=== PATIENT | female | born 1970 | race Caucasian/White ===

== ENCOUNTER 2018-05-17 16:33 | Inpatient (IN) | payer MEDICAID ==
[2018-05-17] MEDS ORDERED: Lactated Ringer 1,000 ML IV ONE ×2 (16:49→21:30)
[2018-05-17 17:10] LABS: URINE SOURCE CLEAN C
[2018-05-17 17:12] LABS: % BASOPHILS 0.2 % (0.0-2.0); % EOSINOPHILS 0.9 % (0.0-5.0); % MONOCYTES 4.3 % (2.0-10.0); % NEUTROPHILS 78.6 % (40.0-80.0); EOSINOPHILE ABSOLUTE 0.2 Th/cmm (0.1-0.4); HEMATOCRIT 41.3 % (41.0-60); HEMOGLOBIN 13.6 gm/dL (12-16); LYMPHOCYTE ABSOLUTE 2.8 Th/cmm (1.5-3.0); MEAN CELL VOLUME 84.2 fl (81-100); MEAN CORPUSCULAR HEMOGLOBIN 27.7 pg (27.0-31.0); MEAN CORPUSCULAR HGB CONC 32.9 pg (28.0-36.0); MEAN PLATELET VOLUME 8.4 fl; MONOCYTE ABSOLUTE 0.8 Th/cmm (0.3-1.0); PLATELET COUNT 365 Th/cmm (150-400); RED CELL DISTRIBUTION WIDTH 11.7 % (11.5-20.0)
[2018-05-17 17:14] LABS: URINE BILIRUBIN NEGATIVE (NEGATIVE); URINE BLOOD NEGATIVE (NEGATIVE); URINE GLUCOSE (UA) NEGATIVE (NEGATIVE); URINE KETONE NEGATIVE (NEGATIVE); URINE LEUKOCYTE ESTERASE NEGATIVE (NEGATIVE); URINE MICROSCOPIC INDICATED? YES; URINE NITRATE NEGATIVE (NEGATIVE); URINE PROTEIN TRACE mg/dL (NEGATIVE)
[2018-05-17 17:20] LABS: WHITE BLOOD COUNT 17.8 Th/cmm (4.8-10.8)
[2018-05-17 17:25] LABS: URINE CLARITY CLEAR (CLEAR); URINE COLOR STRAW
[2018-05-17 17:26] LABS: ALB/GLOB RATIO 1.4 (1.0-1.8); ALBUMIN 4.3 gm/dL (3.7-5.3); ALKALINE PHOSPHATASE 58 U/L (34-104); AMYLASE SERUM 31 U/L (29-103); ANION GAP 14.3 (7.0-16.0); BILIRUBIN,TOTAL 0.8 mg/dL (0.3-1.0); BUN - UREA NITROGEN 11 mg/dL (7-25); CALCIUM SERUM 9.4 mg/dL (8.6-10.3); CARBON DIOXIDE 25.4 mEq/L (21.0-31.0); CHLORIDE 102 mEq/L (98-107); CREATININE - SERUM 0.4 mg/dL (0.6-1.2); GFR AFRICAN-AMERICAN > 60.0 ml/min (>90); GFR NON AFRICAN-AMERICAN > 60.0 ml/min; GLUCOSE 116 mg/dL (70-105); LIPASE 7 U/L (11-82); PHOSPHOROUS 3.6 mg/dL (2.5-5.0); POTASSIUM SERUM 3.7 mEq/L (3.5-5.1); SGOT 16 U/L (13-39); SGPT/ALT 13 U/L (7-52); SODIUM SERUM 138 mEq/L (136-145); TOTAL PROTEIN,SERUM 7.3 gm/dL (6.0-8.3)
[2018-05-17 17:26] LABS: URINE EPITHELIAL CELLS RARE /lpf (FEW); URINE RBC NONE SEEN /hpf (0-5); URINE WBC NONE SEEN /hpf (0-5)
[2018-05-17 17:27] LABS: URINE BACTERIA NONE SEEN /hpf (NONE SEEN)
[2018-05-17 17:45] LABS: AMPHETAMINE URINE NEGATIVE (NEGATIVE); BARBITURATES URINE NEGATIVE (NEGATIVE); BENZODIAZEPINES QUAL URINE NEGATIVE (NEGATIVE); CANNABINOID THC NEGATIVE (NEGATIVE); COCAINE METABOLITE QUAL URINE NEGATIVE (NEGATIVE); METHADONE URINE NEGATIVE (NEGATIVE); METHAMPHETAMINES QUAL URINE NEGATIVE (NEGATIVE); OPIATES (MORPHINE) QUAL. URINE NEGATIVE (NEGATIVE); PHENCYCLIDINE (PCP) URINE NEGATIVE (NEGATIVE); TRICYCLICS (TCA) QUAL. URINE NEGATIVE (NEGATIVE)
[2018-05-17] MEDS ORDERED: Piperacillin Sodium/Tazobact 3.375 gm Vial IV ONE (17:56)
[2018-05-17] MEDS ORDERED: Morphine Sulfate 2 mg/mL 1mL Syr IV STA ×2 (18:08→19:38)
[2018-05-17] MEDS ORDERED: Morphine Sulfate 2 mg/mL 1mL Syr ONE ×2 (18:09→19:42)
--- NOTE | 2018-05-17 19:18 | ED Physician Chart ---
ED Chief Complaint/HPI - Patient Information Date Seen:: 05/17/18 Time Seen:: 16:52 Chief Complaint:: RLQ & RUQ pain, N & anorexia History of Present Illness:: RLQ & RUQ pain, N & anorexia Allergies:: Allergies Allergy/AdvReac Type Severity Reaction Status Date / Time aspirin Allergy Verified 11/20/15 22:04 Vitals:: Vital Signs - 8 hr 05/17/18 05/17/18 16:52 18:07 Temp 98.5 F 99.4 F HR 81 76 RR 22 12 BP 139/83 136/71 O2 Sat % 100 97 Historian:: Patient, Family Member Review:: Nurse's Note Reviewed ED Review of Systems - Review of Systems General/Constitutional: No fever, No chills, No weakness, No diaphoresis, No edema, Loss of appetite Skin: No skin lesions, No rash, No bruising Head: No headache, No light-headedness Eyes: No loss of vision, No pain, No diplopia ENT: No earache, No nasal drainage, No sore throat, No tinnitus Neck: No neck pain, No swelling, No thyromegaly, No stiffness, No mass noted Cardio Vascular: No chest pain, No palpitations, No PND, No orthopnea, No edema Pulmonary: No SOB, No cough, No sputum, No wheezing GI: Nausea, No vomiting, No diarrhea, Pain, No melena, No hematochezia, No constipation, No hematemesis G/U: No dysuria, No frequency, No hematuria Musculoskeletal: No bone or joint pain, No back pain, No muscle pain Endocrine: No polyuria, No polydipsia Psychiatric: No prior psych history, No depression, No anxiety, No suicidal ideation Hematopoietic: No bruising, No lymphadenopathy Allergic/Immuno: No urticaria, No angioedema Neurological: No syncope, No focal symptoms, No weakness, No paresthesia, No headache, No seizure, No dizziness, No confusion, No vertigo ED Past Medical History - Past Medical History Obtainable: Yes Past Medical History: Other (gallstones) Surgical History: other (tubal ligation) Family Medical History - Family Member Mother History Unknown: Yes Ethnicity: ED Physical Exam - Physical Examination General/Constitutional: Awake, Well-developed, well-nourished, Alert, No distress, GCS 15, Non-toxic appearing, Ambulatory Head: Atraumatic Eyes: Lids, conjuctiva normal, PERRL, EOMI Skin: Nl inspection, No rash, No skin lesions, No ecchymosis, Well hydrated, No lymphadenopathy ENMT: External ears, nose nl Neck: Nontender, No nuchal rigidity, No stridor Respiratory: Nl effort/Exclusion, Clear to Auscultation, No Wheeze/Rhonchi/Rales Cardio Vascular: RRR, No murmur, gallop, rubs, NL S1 S2 GI: Nondistended Other GI comments:: decreased bowel sounds. POSITIVE PERITONEAL SIGNS WITH COUGHING. PAIN IS IN THE RIGHT LOWER QUADRANT. Pain in the RUQ as well. MOST PAIN IS IN THE RIGHT LOWER QUADRANT. : No CVA tenderness Extremities: No tenderness or effusion, Full ROM, normal strength in all extremities, No edema, Normal digits & nails Neuro/Psych: Alert/oriented, Normal sensory exam, Normal motor strength, Judgement/insight normal, Mood normal, Normal gait, No focal deficits Misc: Normal back, No paraspinal tenderness ED Labs/Radiology/EKG Results - Lab Results Results: Laboratory Tests 05/17/18 05/17/18 05/17/18 17:00 17:00 17:00 WBC 17.8 H RBC 4.90 Hgb 13.6 Hct 41.3 MCV 84.2 MCH 27.7 MCHC Differential 32.9 RDW 11.7 Plt Count 365 MPV 8.4 Neutrophils % 78.6 Lymphocytes % 16.0 L Monocytes % 4.3 Eosinophils % 0.9 Basophils % 0.2 Sodium 138 Potassium 3.7 Chloride 102 Carbon Dioxide 25.4 Anion Gap 14.3 BUN 11 Creatinine 0.4 L Est GFR ( Amer) > 60.0 Est GFR (Non-Af Amer) > 60.0 BUN/Creatinine Ratio 27.5 Glucose 116 H Whole Bld Lactic Acid 0.96 Calcium 9.4 Phosphorus 3.6 Magnesium 2.0 Total Bilirubin 0.8 AST 16 ALT 13 Alkaline Phosphatase 58 Total Protein 7.3 Albumin 4.3 Globulin 3.0 Albumin/Globulin Ratio 1.4 Amylase 31 Lipase 7 L Urine Source Urine Color Urine Clarity Urine pH Ur Specific [place] Urine Protein Urine Glucose (UA) Urine Ketones Urine Blood Urine Nitrate Urine Bilirubin Urine Urobilinogen Ur Leukocyte Esterase Urine RBC Urine WBC Ur Epithelial Cells Urine Bacteria Urine Opiates Screen Urine Methadone Screen Ur Barbiturates Screen Ur Tricyclics Screen Ur Phencyclidine Scrn Amphetamines Screen U Methamphetamines Scrn U Benzodiazepines Scrn U Cocaine Metab Screen U Cannabinoids Screen 05/17/18 05/17/18 17:02 17:02 WBC RBC Hgb Hct MCV MCH MCHC Differential RDW Plt Count MPV Neutrophils % Lymphocytes % Monocytes % Eosinophils % Basophils % Sodium Potassium Chloride Carbon Dioxide Anion Gap BUN Creatinine Est GFR ( Amer) Est GFR (Non-Af Amer) BUN/Creatinine Ratio Glucose Whole Bld Lactic Acid Calcium Phosphorus Magnesium Total Bilirubin AST ALT Alkaline Phosphatase Total Protein Albumin Globulin Albumin/Globulin Ratio Amylase Lipase Urine Source CLEAN C Urine Color STRAW Urine Clarity CLEAR Urine pH 7.0 Ur Specific [place] 1.020 Urine Protein TRACE Urine Glucose (UA) NEGATIVE Urine Ketones NEGATIVE Urine Blood NEGATIVE Urine Nitrate NEGATIVE Urine Bilirubin NEGATIVE Urine Urobilinogen 1.0 Ur Leukocyte Esterase NEGATIVE Urine RBC NONE SEEN Urine WBC NONE SEEN Ur Epithelial Cells RARE Urine Bacteria NONE SEEN Urine Opiates Screen NEGATIVE Urine Methadone Screen NEGATIVE Ur Barbiturates Screen NEGATIVE Ur Tricyclics Screen NEGATIVE Ur Phencyclidine Scrn NEGATIVE Amphetamines Screen NEGATIVE U Methamphetamines Scrn NEGATIVE U Benzodiazepines Scrn NEGATIVE U Cocaine Metab Screen NEGATIVE U Cannabinoids Screen NEGATIVE ED Assessment - Assessment General Assessment: CT scan of abdomen/pelvis: abnormal changes including wall thickening cecum, ascending colon. Consistent with inflammatory changes. Appendix appears enlarged. Appendicitis suspect. ? cholelithiasis. phone call made to Dr. Peterson who informed me that he doesn't do general surgery. He suggested that I call the 2 other surgeons who take call here. I called Dr. Robertson who was extremely rude and abrasive. When I told him that I didn't think that the patient could wait until the morning to have her appendix removed, DR. ROBERTSON TOLD ME THAT HE DIDN'T CARE ABOUT WHAT MY OPINION WAS. HE SAID THAT HE WOULDN'T COME IN FROM HOME TO PERFORM THE SURGERY TONIGHT. I THANKED THIS SURGEON WHO WAS JUST RUDE AND ABRASIVE TO ME FOR ANSWERING THE PHONE CALL THAT I MADE TO HIM ON A NIGHT WHEN HE WAS NOT FOUNDATION ENGINEER. I then called Dr. Purcell (who Dr. Roberson just answered Brett's phone call and told us to call). Dr. Purcell was very gracious and agreed to come in from home to evaluate this patient for possible surgery tonight. Even though Dr. Purcell is not computer applications engineer, he was nice enough to come in from home to see this patient. Dr. Roberson will admit as the primary. ED Septic Shock - . Is Septic Shock (SBP<90, OR Lactate>4 mmol\L) present?: No - <6hrs of presentation: Vital Signs: Vital Signs - 8 hr 05/17/18 05/17/18 16:52 18:07 Temp 98.5 F 99.4 F HR 81 76 RR 22 12 BP 139/83 136/71 O2 Sat % 100 97 ED Reassessment (Disposition) - Reassessment Reassessment Condition:: Unchanged - Diagnosis Diagnosis:: Acute appendicitis with wall thickening of the cecum and ascending colon. Cholelithiasis (positive from history as well). Leukocytosis. - Patient Disposition Discharge/Transfer:: Acute Care w/in this hosp Admitted to:: Med/Surg Condition at Disposition:: Stable, Unchanged
[2018-05-17] MEDS ORDERED: D5LR 1,000 ML IV ONE ×2 (19:32→19:33)
[2018-05-17] MEDS ORDERED: Morphine Sulfate 2 mg/mL 1mL Syr IVP PRN (19:36)
[2018-05-17 20:12] LABS: INR 0.88 (0.5-1.4); PROTHROMBIN TIME (TEST) 9.3 SECONDS (9.5-11.5)
[2018-05-17] MEDS ORDERED: cefTRIAXone 1 GM in Sodium Chloride 0.9% 50 ML IV SCH (21:00)
[2018-05-17 21:03] VITALS: BP 145/69
[2018-05-17] MEDS ORDERED: Bupivacaine 0.5% W/Ep 10 mL Vial INJ ONE (21:30)
[2018-05-17] MEDS ORDERED: Sodium Chloride 0.9% 1,000 ML IV ONE (21:30)
[2018-05-17] MEDS ORDERED: fentaNYL Citrate 100 mcg/2mL Vial ONE (22:00)
--- NOTE | 2018-05-17 22:08 | Consultation ---
Consult Note - Consult Note Consult Note: PHYSICIAN Consultation Note: Date of Admission: 05/17/18 Purpose of Consultation: Chief Complaint: History of Present Illness: Patient LUBNA ALATORRE was admitted to location Medical/Surgical Unit I with ACUTE APPENDICITIS. Past Medical History: Allergies Allergy/AdvReac Type Severity Reaction Status Date / Time aspirin Allergy Verified 11/20/15 22:04 Vital Signs Temp 99.3 F 05/17/18 20:01 Pulse 74 05/17/18 20:01 Resp 18 05/17/18 20:01 BP 145/69 05/17/18 21:02 Pulse Ox 98 05/17/18 20:01 Intake & Output 05/17/18 05/17/18 05/18/18 06:59 18:59 06:59 Intake Total 1850 Balance 1850 Weight (lbs) 153 lb 153 lb Intake: Intake, IV Amount 1850 Other: # Voids 1 Weight Source Patient stated Patient stated Laboratory Results - last 24 hr 05/17/18 05/17/18 05/17/18 17:00 17:00 17:00 WBC 17.8 H RBC 4.90 Hgb 13.6 Hct 41.3 MCV 84.2 MCH 27.7 MCHC Differential 32.9 RDW 11.7 Plt Count 365 MPV 8.4 Neutrophils % 78.6 Lymphocytes % 16.0 L Monocytes % 4.3 Eosinophils % 0.9 Basophils % 0.2 PT INR PTT (Actin FS) Sodium 138 Potassium 3.7 Chloride 102 Carbon Dioxide 25.4 Anion Gap 14.3 BUN 11 Creatinine 0.4 L Est GFR ( Amer) > 60.0 Est GFR (Non-Af Amer) > 60.0 BUN/Creatinine Ratio 27.5 Glucose 116 H POC Glucose Whole Bld Lactic Acid 0.96 Calcium 9.4 Phosphorus 3.6 Magnesium 2.0 Total Bilirubin 0.8 AST 16 ALT 13 Alkaline Phosphatase 58 Total Protein 7.3 Albumin 4.3 Globulin 3.0 Albumin/Globulin Ratio 1.4 Amylase 31 Lipase 7 L Urine Source Urine Color Urine Clarity Urine pH Ur Specific [place] Urine Protein Urine Glucose (UA) Urine Ketones Urine Blood Urine Nitrate Urine Bilirubin Urine Urobilinogen Ur Leukocyte Esterase Urine RBC Urine WBC Ur Epithelial Cells Urine Bacteria Urine Opiates Screen Urine Methadone Screen Ur Barbiturates Screen Ur Tricyclics Screen Ur Phencyclidine Scrn Amphetamines Screen U Methamphetamines Scrn U Benzodiazepines Scrn U Cocaine Metab Screen U Cannabinoids Screen 05/17/18 05/17/18 05/17/18 17:00 17:02 17:02 WBC RBC Hgb Hct MCV MCH MCHC Differential RDW Plt Count MPV Neutrophils % Lymphocytes % Monocytes % Eosinophils % Basophils % PT 9.3 L INR 0.88 PTT (Actin FS) 24.7 L Sodium Potassium Chloride Carbon Dioxide Anion Gap BUN Creatinine Est GFR ( Amer) Est GFR (Non-Af Amer) BUN/Creatinine Ratio Glucose POC Glucose Whole Bld Lactic Acid Calcium Phosphorus Magnesium Total Bilirubin AST ALT Alkaline Phosphatase Total Protein Albumin Globulin Albumin/Globulin Ratio Amylase Lipase Urine Source CLEAN C Urine Color STRAW Urine Clarity CLEAR Urine pH 7.0 Ur Specific [place] 1.020 Urine Protein TRACE Urine Glucose (UA) NEGATIVE Urine Ketones NEGATIVE Urine Blood NEGATIVE Urine Nitrate NEGATIVE Urine Bilirubin NEGATIVE Urine Urobilinogen 1.0 Ur Leukocyte Esterase NEGATIVE Urine RBC NONE SEEN Urine WBC NONE SEEN Ur Epithelial Cells RARE Urine Bacteria NONE SEEN Urine Opiates Screen NEGATIVE Urine Methadone Screen NEGATIVE Ur Barbiturates Screen NEGATIVE Ur Tricyclics Screen NEGATIVE Ur Phencyclidine Scrn NEGATIVE Amphetamines Screen NEGATIVE U Methamphetamines Scrn NEGATIVE U Benzodiazepines Scrn NEGATIVE U Cocaine Metab Screen NEGATIVE U Cannabinoids Screen NEGATIVE 05/17/18 21:41 WBC RBC Hgb Hct MCV MCH MCHC Differential RDW Plt Count MPV Neutrophils % Lymphocytes % Monocytes % Eosinophils % Basophils % PT INR PTT (Actin FS) Sodium Potassium Chloride Carbon Dioxide Anion Gap BUN Creatinine Est GFR ( Amer) Est GFR (Non-Af Amer) BUN/Creatinine Ratio Glucose POC Glucose 170 H Whole Bld Lactic Acid Calcium Phosphorus Magnesium Total Bilirubin AST ALT Alkaline Phosphatase Total Protein Albumin Globulin Albumin/Globulin Ratio Amylase Lipase Urine Source Urine Color Urine Clarity Urine pH Ur Specific [place] Urine Protein Urine Glucose (UA) Urine Ketones Urine Blood Urine Nitrate Urine Bilirubin Urine Urobilinogen Ur Leukocyte Esterase Urine RBC Urine WBC Ur Epithelial Cells Urine Bacteria Urine Opiates Screen Urine Methadone Screen Ur Barbiturates Screen Ur Tricyclics Screen Ur Phencyclidine Scrn Amphetamines Screen U Methamphetamines Scrn U Benzodiazepines Scrn U Cocaine Metab Screen U Cannabinoids Screen Home Medication Medication Instructions Recorded Type Antihypertensive 1 tab PO DAILY 05/17/18 History Current Medications Generic Name Dose Route Start Last Admin Trade Name Freq PRN Reason Stop Dose Admin Dextrose/Lactated Ringer's 1,000 mls @ 125 mls/hr 02/17/19 19:33 D5lr IV 05/18/18 03:32 .Q8H ONE Ceftriaxone Sodium 1 gm/ 50 mls @ 100 mls/hr 05/17/18 21:00 Sodium Chloride IV 07/16/18 20:59 Q24HR ISELA Dextrose/Sodium Chloride 1,000 mls @ 75 mls/hr 05/17/18 19:37 D5-0.45ns IV 07/16/18 19:36 .[id number] ISELA Morphine Sulfate 1 - 2 mg 05/17/18 19:36 Morphine IVP 07/16/18 19:44 Q4H PRN Pain (Moderate) Pneumococcal Polyvalent Vaccine 0.5 ml 05/18/18 10:00 Pneumovax IM 05/18/18 10:01 .ONCE ONE Review of Systems: A 12 point ROS was reviewed with the pertinent positive and negatives noted in the HPI. Social History Smoking Status Unknown if ever smoked Drug Use No Alcohol Use No Family Medical History Family Medical History Start: 05/17/18 20: 01 Freq: ONCE Status: Active Protocol: Document 05/17/18 20:01 SIRISHA (Rec: 05/17/18 21:03 SIRISHA [id number]) Family Medical History Mother History Unknown Yes Ethnicity Living Status Unknown Hx Family Cancer No Hx Family Coronary Artery Disease No Hx Family Congestive Heart Failure No Hx Family Hypertension No Hx Family Stroke No Hx Family Diabetes No Hx Family Seizures No Hx Family Dementia No Hx Family AIDS No Hx Family HIV No Hx Family COPD No Hx Family Hepatitis No Hx Family Psychiatric Problems No Hx Family Tuberculosis No Physical Exam: patient with acute abdominal pain : General: NAD HEENT: normal Neck: supple Cardio: nsr normal Respiratory: normal respiratory excursions Abdominal: postive McBurney's point tenderness peritoneal signs Genital/Urinary: normal Extremities: normal Neurological: no deficits Assessment: r/o acute appendicitis Plan: exploratory laparoscopy laparoscopic vs open appendectomy Sofía, Jose Purcell Abdominal Pain - Differential Diagnosis Differential Diagnosis: Acute appendicitis (CT suspicious for acute appendicitis ) - Lab Data Result diagrams: 05/17/18 17:00 05/17/18 17:00 Lab Results 05/17/18 05/17/18 05/17/18 Range/Units 17:00 17:00 17:00 WBC 17.8 H (4.8-10.8) Th/cmm RBC 4.90 (3.80-5.10) Mil/cmm Hgb 13.6 (12-16) gm/dL Hct 41.3 (41.0-60) % MCV 84.2 (81-100) fl MCH 27.7 (27.0-31.0) pg MCHC Differential 32.9 (28.0-36.0) pg RDW 11.7 (11.5-20.0) % Plt Count 365 (150-400) Th/cmm MPV 8.4 fl Neutrophils % 78.6 (40.0-80.0) % Lymphocytes % 16.0 L (20.0-50.0) % Monocytes % 4.3 (2.0-10.0) % Eosinophils % 0.9 (0.0-5.0) % Basophils % 0.2 (0.0-2.0) % PT (9.5-11.5) SECONDS INR (0.5-1.4) PTT (Actin FS) (26.0-38.0) SECONDS Sodium 138 (136-145) mEq/L Potassium 3.7 (3.5-5.1) mEq/L Chloride 102 (98-107) mEq/L Carbon Dioxide 25.4 (21.0-31.0) mEq/L Anion Gap 14.3 (7.0-16.0) BUN 11 (7-25) mg/dL Creatinine 0.4 L (0.6-1.2) mg/dL Est GFR ( Amer) > 60.0 (>90) ml/min Est GFR (Non-Af Amer) > 60.0 ml/min BUN/Creatinine Ratio 27.5 Glucose 116 H (70-105) mg/dL POC Glucose (70 - 105) MG/DL Whole Bld Lactic Acid 0.96 (0.60-1.99) mmol/L Calcium 9.4 (8.6-10.3) mg/dL Phosphorus 3.6 (2.5-5.0) mg/dL Magnesium 2.0 (1.9-2.7) mg/dL Total Bilirubin 0.8 (0.3-1.0) mg/dL AST 16 (13-39) U/L ALT 13 (7-52) U/L Alkaline Phosphatase 58 (34-104) U/L Total Protein 7.3 (6.0-8.3) gm/dL Albumin 4.3 (3.7-5.3) gm/dL Globulin 3.0 gm/dL Albumin/Globulin Ratio 1.4 (1.0-1.8) Amylase 31 (29-103) U/L Lipase 7 L (11-82) U/L Urine Source Urine Color Urine Clarity (CLEAR) Urine pH (4.6 - 8.0) Ur Specific [place] (1.005-1.030) Urine Protein (NEGATIVE) mg/dL Urine Glucose (UA) (NEGATIVE) mg/dL Urine Ketones (NEGATIVE) mg/dL Urine Blood (NEGATIVE) Urine Nitrate (NEGATIVE) Urine Bilirubin (NEGATIVE) Urine Urobilinogen (0.2 - 1.0) E.U./dL Ur Leukocyte Esterase (NEGATIVE) Urine RBC (0-5) /hpf Urine WBC (0-5) /hpf Ur Epithelial Cells (FEW) /lpf Urine Bacteria (NONE SEEN) /hpf Urine Opiates Screen (NEGATIVE) Urine Methadone Screen (NEGATIVE) Ur Barbiturates Screen (NEGATIVE) Ur Tricyclics Screen (NEGATIVE) Ur Phencyclidine Scrn (NEGATIVE) Amphetamines Screen (NEGATIVE) U Methamphetamines Scrn (NEGATIVE) U Benzodiazepines Scrn (NEGATIVE) U Cocaine Metab Screen (NEGATIVE) U Cannabinoids Screen (NEGATIVE) 05/17/18 05/17/18 05/17/18 Range/Units 17:00 17:02 17:02 WBC (4.8-10.8) Th/cmm RBC (3.80-5.10) Mil/cmm Hgb (12-16) gm/dL Hct (41.0-60) % MCV (81-100) fl MCH (27.0-31.0) pg MCHC Differential (28.0-36.0) pg RDW (11.5-20.0) % Plt Count (150-400) Th/cmm MPV fl Neutrophils % (40.0-80.0) % Lymphocytes % (20.0-50.0) % Monocytes % (2.0-10.0) % Eosinophils % (0.0-5.0) % Basophils % (0.0-2.0) % PT 9.3 L (9.5-11.5) SECONDS INR 0.88 (0.5-1.4) PTT (Actin FS) 24.7 L (26.0-38.0) SECONDS Sodium (136-145) mEq/L Potassium (3.5-5.1) mEq/L Chloride (98-107) mEq/L Carbon Dioxide (21.0-31.0) mEq/L Anion Gap (7.0-16.0) BUN (7-25) mg/dL Creatinine (0.6-1.2) mg/dL Est GFR ( Amer) (>90) ml/min Est GFR (Non-Af Amer) ml/min BUN/Creatinine Ratio Glucose (70-105) mg/dL POC Glucose (70 - 105) MG/DL Whole Bld Lactic Acid (0.60-1.99) mmol/L Calcium (8.6-10.3) mg/dL Phosphorus (2.5-5.0) mg/dL Magnesium (1.9-2.7) mg/dL Total Bilirubin (0.3-1.0) mg/dL AST (13-39) U/L ALT (7-52) U/L Alkaline Phosphatase (34-104) U/L Total Protein (6.0-8.3) gm/dL Albumin (3.7-5.3) gm/dL Globulin gm/dL Albumin/Globulin Ratio (1.0-1.8) Amylase (29-103) U/L Lipase (11-82) U/L Urine Source CLEAN C Urine Color STRAW Urine Clarity CLEAR (CLEAR) Urine pH 7.0 (4.6 - 8.0) Ur Specific [place] 1.020 (1.005-1.030) Urine Protein TRACE (NEGATIVE) mg/dL Urine Glucose (UA) NEGATIVE (NEGATIVE) mg/dL Urine Ketones NEGATIVE (NEGATIVE) mg/dL Urine Blood NEGATIVE (NEGATIVE) Urine Nitrate NEGATIVE (NEGATIVE) Urine Bilirubin NEGATIVE (NEGATIVE) Urine Urobilinogen 1.0 (0.2 - 1.0) E.U./dL Ur Leukocyte Esterase NEGATIVE (NEGATIVE) Urine RBC NONE SEEN (0-5) /hpf Urine WBC NONE SEEN (0-5) /hpf Ur Epithelial Cells RARE (FEW) /lpf Urine Bacteria NONE SEEN (NONE SEEN) /hpf Urine Opiates Screen NEGATIVE (NEGATIVE) Urine Methadone Screen NEGATIVE (NEGATIVE) Ur Barbiturates Screen NEGATIVE (NEGATIVE) Ur Tricyclics Screen NEGATIVE (NEGATIVE) Ur Phencyclidine Scrn NEGATIVE (NEGATIVE) Amphetamines Screen NEGATIVE (NEGATIVE) U Methamphetamines Scrn NEGATIVE (NEGATIVE) U Benzodiazepines Scrn NEGATIVE (NEGATIVE) U Cocaine Metab Screen NEGATIVE (NEGATIVE) U Cannabinoids Screen NEGATIVE (NEGATIVE) 05/17/18 Range/Units 21:41 WBC (4.8-10.8) Th/cmm RBC (3.80-5.10) Mil/cmm Hgb (12-16) gm/dL Hct (41.0-60) % MCV (81-100) fl MCH (27.0-31.0) pg MCHC Differential (28.0-36.0) pg RDW (11.5-20.0) % Plt Count (150-400) Th/cmm MPV fl Neutrophils % (40.0-80.0) % Lymphocytes % (20.0-50.0) % Monocytes % (2.0-10.0) % Eosinophils % (0.0-5.0) % Basophils % (0.0-2.0) % PT (9.5-11.5) SECONDS INR (0.5-1.4) PTT (Actin FS) (26.0-38.0) SECONDS Sodium (136-145) mEq/L Potassium (3.5-5.1) mEq/L Chloride (98-107) mEq/L Carbon Dioxide (21.0-31.0) mEq/L Anion Gap (7.0-16.0) BUN (7-25) mg/dL Creatinine (0.6-1.2) mg/dL Est GFR ( Amer) (>90) ml/min Est GFR (Non-Af Amer) ml/min BUN/Creatinine Ratio Glucose (70-105) mg/dL POC Glucose 170 H (70 - 105) MG/DL Whole Bld Lactic Acid (0.60-1.99) mmol/L Calcium (8.6-10.3) mg/dL Phosphorus (2.5-5.0) mg/dL Magnesium (1.9-2.7) mg/dL Total Bilirubin (0.3-1.0) mg/dL AST (13-39) U/L ALT (7-52) U/L Alkaline Phosphatase (34-104) U/L Total Protein (6.0-8.3) gm/dL Albumin (3.7-5.3) gm/dL Globulin gm/dL Albumin/Globulin Ratio (1.0-1.8) Amylase (29-103) U/L Lipase (11-82) U/L Urine Source Urine Color Urine Clarity (CLEAR) Urine pH (4.6 - 8.0) Ur Specific [place] (1.005-1.030) Urine Protein (NEGATIVE) mg/dL Urine Glucose (UA) (NEGATIVE) mg/dL Urine Ketones (NEGATIVE) mg/dL Urine Blood (NEGATIVE) Urine Nitrate (NEGATIVE) Urine Bilirubin (NEGATIVE) Urine Urobilinogen (0.2 - 1.0) E.U./dL Ur Leukocyte Esterase (NEGATIVE) Urine RBC (0-5) /hpf Urine WBC (0-5) /hpf Ur Epithelial Cells (FEW) /lpf Urine Bacteria (NONE SEEN) /hpf Urine Opiates Screen (NEGATIVE) Urine Methadone Screen (NEGATIVE) Ur Barbiturates Screen (NEGATIVE) Ur Tricyclics Screen (NEGATIVE) Ur Phencyclidine Scrn (NEGATIVE) Amphetamines Screen (NEGATIVE) U Methamphetamines Scrn (NEGATIVE) U Benzodiazepines Scrn (NEGATIVE) U Cocaine Metab Screen (NEGATIVE) U Cannabinoids Screen (NEGATIVE)
[2018-05-17] MEDS ORDERED: Propofol **SURGERY USE ONLY** 20 ML IV ONE (22:14)
--- NOTE | 2018-05-17 22:50 | Operative Report ---
Operative Report - Surgery Procedure:: appendectomy drainage of abcess Indication for procedure:: peritoneal signs sepsis Procedure consent:: laparoscopic vs open appendectomy Anesthesia:: Anesthesiologist: Anesthesia: Preoperative diagnosis:: acute appendicitis colitis Postoperative diagnosis:: acute perforated appendicitis with abcess formation cecal inllammatory reaction Description of Procedure:: UNDER GENERAL ANASTHESIA THE PATIENT WAS PREPPED AND DRAPPED IN STERILE FASHION TRIANGULATION OF 2 10/12MM TROCARS AND ONE 5 MM ALLOWED THE PATIENT TO BE PLACED IN TRENDELENBERG POSITION AND RIGHT SIDE UP WITH THE APPENDIX DISSECTED AWAY FROM THE OMENTAL ADHESIONS. THE SUCTION IRRIGATION WAS USED . A 45 MM STAPLER WAS USED TO ISOLATE THE APPENDIX FROM THE CECUM WHILE THE ENSEAL FOR CONTROL OF THE VASCULAR SUPPLY TO THE APPENDIX AND OMENTAL TISSUES ADHESIONS TO THE APPENDIX AND CECUM. THE APPENDIX WAS PLACED IN AN ENDOBAG AND RETRIEVED FROM THE LLQ PORT SITE. A SIZE 10 RENY DRAIN WAS PLACED IN THE RIGHT PELVIS AND 1 LITER OF SALINE WAS IRRIGATED UNTIL CLEAR RETURN. THE APPENDIX WAS CULTURED FOR C&S. THE 5 ,MM SITE WAS USED FOR THE SECURING OF THE 10 reny DRAIN AND THE OTHER 2 10MM PORTS WERE CLOSED WITH 0 VICRYL AND ODESSA. ALL INSTRUMENTS SPONGE AND NEEDLE COUNTS WERE CORRECT. Recommendations:: ID CONSULT FOR RUPTURED PERITONITIS APPENDICITIS
[2018-05-17] MEDS ORDERED: Meperidine 50 mg/mL 1mL Syr ONE (23:18)
[2018-05-18] MEDS: D5-0.45NS 1,000 ML IV SCH ×2 (01:00→17:47)
[2018-05-18] MEDS ORDERED: Morphine Sulfate 2 mg/mL 1mL Syr IVP PRN (02:39)
[2018-05-18] MEDS ORDERED: metroNIDAZOLE 500mg/NS 100mL 500 MG/100 ML BAG IV SCH (03:00)
[2018-05-18] MEDS: metroNIDAZOLE 500 mg/100 mL Premix Bag IV SCH ×2 (04:51→11:05)
[2018-05-18 05:03] LABS: % BASOPHILS 0.2 % (0.0-2.0); % EOSINOPHILS 0.2 % (0.0-5.0); % LYMPHOCYTES 20.2 % (20.0-50.0); % MONOCYTES 6.7 % (2.0-10.0); % NEUTROPHILS 72.7 % (40.0-80.0); HEMOGLOBIN 11.5 gm/dL (12-16); LYMPHOCYTE ABSOLUTE 3.6 Th/cmm (1.5-3.0); MEAN CELL VOLUME 83.5 fl (81-100); MEAN CORPUSCULAR HEMOGLOBIN 28.3 pg (27.0-31.0); MEAN CORPUSCULAR HGB CONC 33.9 pg (28.0-36.0); MEAN PLATELET VOLUME 8.4 fl; MONOCYTE ABSOLUTE 1.2 Th/cmm (0.3-1.0); NEUTROPHILE ABSOLUTE 13.1 Th/cmm (1.8-8.0); PLATELET COUNT 296 Th/cmm (150-400); RED BLOOD COUNT 4.07 Mil/cmm (3.80-5.10); RED CELL DISTRIBUTION WIDTH 11.8 % (11.5-20.0)
[2018-05-18 05:14] LABS: ALB/GLOB RATIO 1.5 (1.0-1.8); ALBUMIN 3.5 gm/dL (3.7-5.3); ALKALINE PHOSPHATASE 44 U/L (34-104); ANION GAP 10.1 (7.0-16.0); BILIRUBIN,TOTAL 0.8 mg/dL (0.3-1.0); BUN - UREA NITROGEN 8 mg/dL (7-25); CALCIUM SERUM 8.7 mg/dL (8.6-10.3); CARBON DIOXIDE 26.8 mEq/L (21.0-31.0); CHLORIDE 104 mEq/L (98-107); CREATININE - SERUM 0.4 mg/dL (0.6-1.2); GFR AFRICAN-AMERICAN > 60.0 ml/min (>90); GFR NON AFRICAN-AMERICAN > 60.0 ml/min; GLUCOSE 136 mg/dL (70-105); POTASSIUM SERUM 3.9 mEq/L (3.5-5.1); SGOT 12 U/L (13-39); SGPT/ALT 10 U/L (7-52); SODIUM SERUM 137 mEq/L (136-145); TOTAL PROTEIN,SERUM 5.8 gm/dL (6.0-8.3)
[2018-05-18 05:21] LABS: HEMATOCRIT 33.9 % (41.0-60); WHITE BLOOD COUNT 17.9 Th/cmm (4.8-10.8)
[2018-05-18] MEDS: ceFAZolin 1 GM in Sodium Chloride 0.9% 50 ML IV SCH ×2 (06:28→14:21)
--- NOTE | 2018-05-18 08:00 | Diagnostic Imaging Report ---
CHEST X-RAY: AP view INDICATION: Cough, preop COMPARISON: None FINDINGS: Slightly decreased lung bones are noted. There is no focal consolidation or pleural effusions The heart is normal in size. Degenerative changes of the spine are noted. Small calcification possible calcific tendinitis of left shoulder is noted. IMPRESSION: No focal airspace consolidation identified.
--- NOTE | 2018-05-18 08:08 | Diagnostic Imaging Report ---
CT abdomen and pelvis without intravenous contrast Indication: Right lower quadrant pain, also presents with right upper quadrant pain Comparison: None, Technique: Axial images were obtained from the lung bases to the bilateral proximal femurs without IV contrast. Coronal reconstructions were made. total DLP: [id number], CTDI10.4 FINDINGS: Hypoventilatory and atelectatic changes of the lung bases are noted. Assessment of the solid organs is limited due to lack of IV contrast. No focal hepatic lesions. Small gallstones cannot be excluded. Mildly distended gallbladder is also noted. There may be a gallbladder fold. No focal splenic, pancreatic, or adrenal lesions. No evidence hydronephrosis or focal renal lesions. Small fat-containing paraumbilical hernia is seen on the right. The bladder is underdistended, limiting its evaluation. Diverticulosis is noted. There is inflammatory change in the right lower quadrant with prominence of the appendix greatest distally measuring 1.2 cm. There is suggestion of a 2 mm appendicolith along the mid appendix. Mild surrounding inflammatory changes are noted. There are areas of fatty infiltration of the colonic mucosa along the cecal region. No free air or free fluid. Mildly prominent mesenteric right lower quadrant lymph nodes are noted. The osseous structures demonstrate no acute abnormalities. IMPRESSION: Mildly prominent appendix with inflammatory changes of right lower quadrant most consistent with acute appendicitis. There may be a tiny appendicolith. No free fluid or free air. No evidence of abscess formation Distended gallbladder with probable gallbladder fold. Small gallstones cannot be excluded. Suggest further assessment with ultrasound. Diverticulosis. Small fat-containing umbilical hernia on the right. Mildly prominent mesenteric right lower quadrant lymph nodes nonspecific and possibly reactive.
[2018-05-18] MEDS ORDERED: Pneumococcal Vaccine 0.5 mL Vial IM ONE (10:00)
[2018-05-18] MEDS: Morphine Sulfate 2 mg/mL 1mL Syr IVP PRN ×2 (11:14→19:39)
--- NOTE | 2018-05-18 12:12 | History and Physical ---
History of Present Illness - HPI Chief Complaint: Patient was admitted complaining of severe pain of right lower quadrant and pain of right upper quadrant, Patient was found to have Acute Appendicitis, Cholelithiasis and Leukocytosis. HPI: Chief complaint Patient was admitted complaining of severe pain of right lower quadrant and pain of right upper quadrant, Patient was found to have Acute Appendicitis, Cholelithiasis and Leukocytosis. Present illness 47 y/o female patient was admitted to [facility] on May due to complaints of severe pain of right lower quadrant and pain of right upper quadrant. Patient has past history of Cholelithiasis. Patient had a complete workup done and was found to have Acute Appendicitis, Cholelithiasis and Leukocytosis. Patient had a General Surgeon consult and patient then had an Appendectomy performed. Patient was put on Antibiotics and Pain Management. Patient will have an ID consult for ruptured Peritonitis Appendicitis. I will also continue to follow patent. Patient will continue to be treated and monitored. Patient will continue present treatment plan as ordered. Review of systems Vitals: Reviewed. General: Normotensive, in no acute distress. Head: Normocephalic, no lesions. Eyes: PERRLA, EOM'S full, conjunctive clear, fundi grossly normal. Neck: Supple, no masses, no thyromegaly, no bruits. Lungs: Bilateral breath sounds, No Rhonchi or wheezing noted. Heart: RR, no murmurs, no rubs, no gallops. Abdomen: Positive for tenderness. Musculoskeletal: No Joint Pain, No Tenderness, No Edema. Psych: Normal mood and affect. Skin: No rash or skin lesions noted. Neurological: Denies headache and loss of consciousness. Past medical history Cholelithiasis Past surgical history Tubal Ligation. Medications Please refer to medication reconciliation sheet. Allergies Allergic to Aspirin. Family history Noncontributory. Social history Nonsmoker, No Alcohol use, No drug abuse. Physical Exam- HEENT: Head is normocephalic, atraumatic. NECK: Supple. No JVD. No carotid bruit. CHEST: Bilateral breath sounds. No crackles. No wheezing. HEART: S1, S2 within normal limits. Regular rhythm. No murmur. No gallop. ABDOMEN: Positive for Right upper and lower pain, tenderness. EXTREMITIES: No joint enlargement, No swelling or tenderness. NEUROLOGIC: Alert oriented x 3. Assessment and Impression Acute Appendicitis. Cholelithiasis. Leukocytosis. S/p Appendectomy. Anorexia. Plan Continuation of care. Monitor labs, Hemoglobin levels, Continue present meds as directed. Monitor Diet/Nutritional support. Fall precaution, frequent nursing rounds, and as needed restraints to prevent fall. Supportive care. ID Consult for ruptured Peritonitis Appendicitis. Continue collaborating with consulting specialists, case management and nursing team. Will Monitor patient and continue current treatment plan as ordered. Vital Signs: Last Vital Signs Temp 98.8 F 05/18/18 04:00 Pulse 67 05/18/18 04:00 Resp 18 05/18/18 04:00 BP 107/59 05/18/18 04:00 Pulse Ox 97 05/18/18 04:00 Past Medical History Cardiovascular: Report: No Pertinent Hx ELEMENT SETTER: Report: No Pertinent Hx GI: Report: Other (Cholithiasis.) Psych: Report: No Pertinent Hx Musculoskeletal: Report: No Pertinent Hx Rheumatologic: Report: No pertinent Hx Renal/: Report: No Pertinent Hx Endocrine: Report: No Pertinent Hx Dermatology: Report: No Pertinent Hx - Past Surgical History Past Surgical History: Tubal Ligation Family Medical History - Family Member Mother History Unknown: Yes Ethnicity: Living Status: Unknown Hx Family Cancer: No Hx Family Coronary Artery Disease: No Hx Family Congestive Heart Failure: No Hx Family Hypertension: No Hx Family Stroke: No Hx Family Diabetes: No Hx Family Seizures: No Hx Family Dementia: No Hx Family AIDS: No Hx Family HIV: No Hx Family COPD: No Hx Family Hepatitis: No Hx Family Psychiatric Problems: No Hx Family Tuberculosis: No Social History Smoke: No Alcohol: None Drugs: None Lives: Other Domestic Violence: Negative - Medications Home Medications: Home Medication Medication Instructions Recorded Type Albuterol Sulfate [Proair Hfa] 1 puff PO PRN PRN 05/17/18 History Lisinopril [Zestril] 20 mg PO DAILY 05/17/18 History - Allergies Allergies/Adverse Reactions: Allergies Allergy/AdvReac Type Severity Reaction Status Date / Time aspirin Allergy Verified 11/20/15 22:04 Review of Systems - Review of Systems Constitutional: Report: No Significant Eyes: Report: No Significant ENT: Report: No Significant Respiratory: Report: No Significant Cardiovascular: Report: No Significant Gastrointestinal: Report: Abdominal Pain Genitourinary: Report: No Significant Musculoskeletal: Report: No Significant Skin: Report: No Significant Neurological: Report: No Significant Physical Exam - Physical Exam HEENT: Report: Ears Nose Throat within normal limits Neck: Report: Within normal limits Cardiovascular Systems: Report: +s1/s2 noted Respiratory: Report: Breath Sounds are within normal limits Abdomen: Report: Tender to palpation Back: Report: Inspection of back is within normal limits. Extremities: Report: Non-tender to palpation. Skin: Report: Color of skin is within normal limits Neuro/Psych: Report: Mood affect is within normal limits - Lab Results All Lab Results last 24 hours: Laboratory Results - last 24 hr 05/17/18 05/17/18 05/17/18 17:00 17:00 17:00 WBC 17.8 H RBC 4.90 Hgb 13.6 Hct 41.3 MCV 84.2 MCH 27.7 MCHC Differential 32.9 RDW 11.7 Plt Count 365 MPV 8.4 Neutrophils % 78.6 Lymphocytes % 16.0 L Monocytes % 4.3 Eosinophils % 0.9 Basophils % 0.2 PT INR PTT (Actin FS) Sodium 138 Potassium 3.7 Chloride 102 Carbon Dioxide 25.4 Anion Gap 14.3 BUN 11 Creatinine 0.4 L Est GFR ( Amer) > 60.0 Est GFR (Non-Af Amer) > 60.0 BUN/Creatinine Ratio 27.5 Glucose 116 H POC Glucose Whole Bld Lactic Acid 0.96 Calcium 9.4 Phosphorus 3.6 Magnesium 2.0 Total Bilirubin 0.8 AST 16 ALT 13 Alkaline Phosphatase 58 Total Protein 7.3 Albumin 4.3 Globulin 3.0 Albumin/Globulin Ratio 1.4 Amylase 31 Lipase 7 L Urine Source Urine Color Urine Clarity Urine pH Ur Specific [place] Urine Protein Urine Glucose (UA) Urine Ketones Urine Blood Urine Nitrate Urine Bilirubin Urine Urobilinogen Ur Leukocyte Esterase Urine RBC Urine WBC Ur Epithelial Cells Urine Bacteria Urine Opiates Screen Urine Methadone Screen Ur Barbiturates Screen Ur Tricyclics Screen Ur Phencyclidine Scrn Amphetamines Screen U Methamphetamines Scrn U Benzodiazepines Scrn U Cocaine Metab Screen U Cannabinoids Screen 05/17/18 05/17/18 05/17/18 17:00 17:02 17:02 WBC RBC Hgb Hct MCV MCH MCHC Differential RDW Plt Count MPV Neutrophils % Lymphocytes % Monocytes % Eosinophils % Basophils % PT 9.3 L INR 0.88 PTT (Actin FS) 24.7 L Sodium Potassium Chloride Carbon Dioxide Anion Gap BUN Creatinine Est GFR ( Amer) Est GFR (Non-Af Amer) BUN/Creatinine Ratio Glucose POC Glucose Whole Bld Lactic Acid Calcium Phosphorus Magnesium Total Bilirubin AST ALT Alkaline Phosphatase Total Protein Albumin Globulin Albumin/Globulin Ratio Amylase Lipase Urine Source CLEAN C Urine Color STRAW Urine Clarity CLEAR Urine pH 7.0 Ur Specific [place] 1.020 Urine Protein TRACE Urine Glucose (UA) NEGATIVE Urine Ketones NEGATIVE Urine Blood NEGATIVE Urine Nitrate NEGATIVE Urine Bilirubin NEGATIVE Urine Urobilinogen 1.0 Ur Leukocyte Esterase NEGATIVE Urine RBC NONE SEEN Urine WBC NONE SEEN Ur Epithelial Cells RARE Urine Bacteria NONE SEEN Urine Opiates Screen NEGATIVE Urine Methadone Screen NEGATIVE Ur Barbiturates Screen NEGATIVE Ur Tricyclics Screen NEGATIVE Ur Phencyclidine Scrn NEGATIVE Amphetamines Screen NEGATIVE U Methamphetamines Scrn NEGATIVE U Benzodiazepines Scrn NEGATIVE U Cocaine Metab Screen NEGATIVE U Cannabinoids Screen NEGATIVE 05/17/18 05/18/18 05/18/18 21:41 04:40 04:40 WBC 17.9 H RBC 4.07 Hgb 11.5 L Hct 33.9 L D MCV 83.5 MCH 28.3 MCHC Differential 33.9 RDW 11.8 Plt Count 296 MPV 8.4 Neutrophils % 72.7 Lymphocytes % 20.2 Monocytes % 6.7 Eosinophils % 0.2 Basophils % 0.2 PT INR PTT (Actin FS) Sodium 137 Potassium 3.9 Chloride 104 Carbon Dioxide 26.8 Anion Gap 10.1 BUN 8 Creatinine 0.4 L Est GFR ( Amer) > 60.0 Est GFR (Non-Af Amer) > 60.0 BUN/Creatinine Ratio 20.0 Glucose 136 H POC Glucose 170 H Whole Bld Lactic Acid Calcium 8.7 Phosphorus Magnesium Total Bilirubin 0.8 AST 12 L ALT 10 Alkaline Phosphatase 44 Total Protein 5.8 L Albumin 3.5 L Globulin 2.3 Albumin/Globulin Ratio 1.5 Amylase Lipase Urine Source Urine Color Urine Clarity Urine pH Ur Specific [place] Urine Protein Urine Glucose (UA) Urine Ketones Urine Blood Urine Nitrate Urine Bilirubin Urine Urobilinogen Ur Leukocyte Esterase Urine RBC Urine WBC Ur Epithelial Cells Urine Bacteria Urine Opiates Screen Urine Methadone Screen Ur Barbiturates Screen Ur Tricyclics Screen Ur Phencyclidine Scrn Amphetamines Screen U Methamphetamines Scrn U Benzodiazepines Scrn U Cocaine Metab Screen U Cannabinoids Screen - Assessment Assessment: Current Active Problems Problem Status Onset RIGHT FLANK PAIN Acute
[2018-05-18] MEDS: Levofloxacin 500mg/100mL 500 MG/100 ML BAG IV SCH (13:14)
[2018-05-18] MEDS ORDERED: Albuterol Nebulizer 2.5mg/3mL HHN PRN (14:43)
[2018-05-19 05:12] LABS: % BASOPHILS 0.5 % (0.0-2.0); % EOSINOPHILS 4.9 % (0.0-5.0); % MONOCYTES 8.1 % (2.0-10.0); % NEUTROPHILS 59.5 % (40.0-80.0); BASOPHILE ABSOLUTE 0.1 Th/cumm (0-0.2); EOSINOPHILE ABSOLUTE 0.6 Th/cmm (0.1-0.4); HEMATOCRIT 35.2 % (41.0-60); HEMOGLOBIN 11.9 gm/dL (12-16); LYMPHOCYTE ABSOLUTE 3.3 Th/cmm (1.5-3.0); MEAN CELL VOLUME 83.7 fl (81-100); MEAN CORPUSCULAR HEMOGLOBIN 28.3 pg (27.0-31.0); MEAN CORPUSCULAR HGB CONC 33.8 pg (28.0-36.0); MEAN PLATELET VOLUME 8.7 fl; NEUTROPHILE ABSOLUTE 7.4 Th/cmm (1.8-8.0); PLATELET COUNT 295 Th/cmm (150-400); RED BLOOD COUNT 4.21 Mil/cmm (3.80-5.10); RED CELL DISTRIBUTION WIDTH 11.7 % (11.5-20.0)
[2018-05-19 05:22] LABS: WHITE BLOOD COUNT 12.4 Th/cmm (4.8-10.8)
[2018-05-19] MEDS: D5-0.45NS 1,000 ML IV SCH ×2 (05:46→16:30)
[2018-05-19] MEDS: Morphine Sulfate 2 mg/mL 1mL Syr IVP PRN ×3 (11:21→20:35)
[2018-05-19] MEDS: Levofloxacin 500mg/100mL 500 MG/100 ML BAG IV SCH (12:03)
--- NOTE | 2018-05-19 13:06 | Consultation ---
DATE OF CONSULTATION: 05/18/2018 PRIMARY CARE PHYSICIAN: Dr. Roberson. HISTORY OF PRESENT ILLNESS: This is a 47-year-old female who was brought to the Emergency Room complaining of right-sided abdominal pain. The patient was found to have acute appendicitis with leukocytosis and was seen by Dr. Purcell, underwent emergency surgery, appendectomy. The patient was found to have perforation of the appendix and peritonitis. Infectious consultation was called for further treatment, antibiotic adjusted, preop Ancef was given. PAST MEDICAL HISTORY: History of hypertension. ALLERGIES: Allergic to ASPIRIN. SOCIAL HISTORY: Nonsmoker. FAMILY HISTORY: No family history. REVIEW OF SYSTEMS: A 14-point review of system negative except above. PHYSICAL EXAMINATION: GENERAL: Well-nourished female, alert, awake, oriented x 3. VITAL SIGNS: With the following vital signs, temperature is 98.8, pulse 89, respiration 18, blood pressure 120/69. HEENT: Mild pallor, no icterus or plaque. NECK: Supple. LUNGS: Breath sounds bilaterally decreased. CARDIOVASCULAR: S1. ABDOMEN: Soft, bowel sounds decreased. Tenderness present. Clean surgical wound. NEUROLOGIC: No focal deficits. Chest x-ray, no infiltrate. DIAGNOSES: Acute appendicitis with perforation, status post surgery. The patient was started on Levaquin. Continue Flagyl. Repeat labs tomorrow. Discontinue Ancef and Rocephin. NADERSON fluid culture ordered. Discussed with the staff. Hypertension. Monitor blood pressure. Restart home medication. Pain control with morphine, Zofran for nausea. Thank you Dr. Roberson and Dr. Purcell for this consultation. JOB# [id number]
--- NOTE | 2018-05-19 14:24 | Pathology Report ---
[id number] Collection Date: 05/17/2018 Surgeon: Dr. Grayson Purcell Specimen Description: Appendix. Gross Description: Received in formalin is a 7 cm in length x 1.0 cm in diameter appendix with extensive cooney exudate coding the outer surface of the specimen. Sectioning shows thinning of the appendix wall to 1 mm along the distal tip with ulceration of the underlying mucosa. No definite areas of perforation are identified, with an intact thin muscular wall surrounding the entire appendix. The adjacent fatty tissue shows induration and extensive cooney exudate. Supervisor Pipelines sections are submitted in two cassettes labeled A1 and A2. Microscopic Description: The histologic sections show appendix with an intact wall that is thinned to less than 1 mm along the distal tip. There is ulceration of the underlying mucosa with extensive acute inflammation consisting of neutrophils that extend through the muscular wall and involve the periappendiceal soft tissues, where large collections of neutrophils are appreciated. Diagnosis: Acute appendicitis with near perforation of the distal tip. Comment: The extensive periappendiceal inflammation is consistent with early abscess formation. [facility]# [id number] MTDD
--- NOTE | 2018-05-19 16:49 | Internal Medicine Prog Note ---
Internal Medicine Subjective - Subjective Service Date: 05/19/18 (daughter at bedside, encouraged patient to ambulate and deep breathing exercises, reny drain still in place with 10ml drainage) Patient seen and examined:: with staff Patient is:: awake, verbal Per staff patient has:: tolerating meds Internal Medicine Objective - Results Result Diagrams: 05/19/18 04:20 05/18/18 04:40 Recent Labs: Laboratory Last Values WBC 12.4 Th/cmm (4.8-10.8) H D 05/19/18 04:20 RBC 4.21 Mil/cmm (3.80-5.10) 05/19/18 04:20 Hgb 11.9 gm/dL (12-16) L 05/19/18 04:20 Hct 35.2 % (41.0-60) L 05/19/18 04:20 MCV 83.7 fl (81-100) 05/19/18 04:20 MCH 28.3 pg (27.0-31.0) 05/19/18 04:20 MCHC Differential 33.8 pg (28.0-36.0) 05/19/18 04:20 RDW 11.7 % (11.5-20.0) 05/19/18 04:20 Plt Count 295 Th/cmm (150-400) 05/19/18 04:20 MPV 8.7 fl 05/19/18 04:20 Neutrophils % 59.5 % (40.0-80.0) 05/19/18 04:20 Lymphocytes % 27.0 % (20.0-50.0) 05/19/18 04:20 Monocytes % 8.1 % (2.0-10.0) 05/19/18 04:20 Eosinophils % 4.9 % (0.0-5.0) 05/19/18 04:20 Basophils % 0.5 % (0.0-2.0) 05/19/18 04:20 PT 9.3 SECONDS (9.5-11.5) L 05/17/18 17:00 INR 0.88 (0.5-1.4) 05/17/18 17:00 PTT (Actin FS) 24.7 SECONDS (26.0-38.0) L 05/17/18 17:00 Sodium 137 mEq/L (136-145) 05/18/18 04:40 Potassium 3.9 mEq/L (3.5-5.1) 05/18/18 04:40 Chloride 104 mEq/L (98-107) 05/18/18 04:40 Carbon Dioxide 26.8 mEq/L (21.0-31.0) 05/18/18 04:40 Anion Gap 10.1 (7.0-16.0) 05/18/18 04:40 BUN 8 mg/dL (7-25) 05/18/18 04:40 Creatinine 0.4 mg/dL (0.6-1.2) L 05/18/18 04:40 Est GFR ( Amer) > 60.0 ml/min (>90) 05/18/18 04:40 Est GFR (Non-Af Amer) > 60.0 ml/min 05/18/18 04:40 BUN/Creatinine Ratio 20.0 05/18/18 04:40 Glucose 136 mg/dL (70-105) H 05/18/18 04:40 POC Glucose 170 MG/DL (70 - 105) H 05/17/18 21:41 Whole Bld Lactic Acid 0.96 mmol/L (0.60-1.99) 05/17/18 17:00 Calcium 8.7 mg/dL (8.6-10.3) 05/18/18 04:40 Phosphorus 3.6 mg/dL (2.5-5.0) 05/17/18 17:00 Magnesium 2.0 mg/dL (1.9-2.7) 05/17/18 17:00 Total Bilirubin 0.8 mg/dL (0.3-1.0) 05/18/18 04:40 AST 12 U/L (13-39) L 05/18/18 04:40 ALT 10 U/L (7-52) 05/18/18 04:40 Alkaline Phosphatase 44 U/L (34-104) 05/18/18 04:40 Total Protein 5.8 gm/dL (6.0-8.3) L 05/18/18 04:40 Albumin 3.5 gm/dL (3.7-5.3) L 05/18/18 04:40 Globulin 2.3 gm/dL 05/18/18 04:40 Albumin/Globulin Ratio 1.5 (1.0-1.8) 05/18/18 04:40 Amylase 31 U/L (29-103) 05/17/18 17:00 Lipase 7 U/L (11-82) L 05/17/18 17:00 Urine Source CLEAN C 05/17/18 17:02 Urine Color STRAW 05/17/18 17:02 Urine Clarity CLEAR (CLEAR) 05/17/18 17:02 Urine pH 7.0 (4.6 - 8.0) 05/17/18 17:02 Ur Specific [place] 1.020 (1.005-1.030) 05/17/18 17:02 Urine Protein TRACE mg/dL (NEGATIVE) 05/17/18 17:02 Urine Glucose (UA) NEGATIVE mg/dL (NEGATIVE) 05/17/18 17:02 Urine Ketones NEGATIVE mg/dL (NEGATIVE) 05/17/18 17:02 Urine Blood NEGATIVE (NEGATIVE) 05/17/18 17:02 Urine Nitrate NEGATIVE (NEGATIVE) 05/17/18 17:02 Urine Bilirubin NEGATIVE (NEGATIVE) 05/17/18 17:02 Urine Urobilinogen 1.0 E.U./dL (0.2 - 1.0) 05/17/18 17:02 Ur Leukocyte Esterase NEGATIVE (NEGATIVE) 05/17/18 17:02 Urine RBC NONE SEEN /hpf (0-5) 05/17/18 17:02 Urine WBC NONE SEEN /hpf (0-5) 05/17/18 17:02 Ur Epithelial Cells RARE /lpf (FEW) 05/17/18 17:02 Urine Bacteria NONE SEEN /hpf (NONE SEEN) 05/17/18 17:02 Urine Opiates Screen NEGATIVE (NEGATIVE) 05/17/18 17:02 Urine Methadone Screen NEGATIVE (NEGATIVE) 05/17/18 17:02 Ur Barbiturates Screen NEGATIVE (NEGATIVE) 05/17/18 17:02 Ur Tricyclics Screen NEGATIVE (NEGATIVE) 05/17/18 17:02 Ur Phencyclidine Scrn NEGATIVE (NEGATIVE) 05/17/18 17:02 Amphetamines Screen NEGATIVE (NEGATIVE) 05/17/18 17:02 U Methamphetamines Scrn NEGATIVE (NEGATIVE) 05/17/18 17:02 U Benzodiazepines Scrn NEGATIVE (NEGATIVE) 05/17/18 17:02 U Cocaine Metab Screen NEGATIVE (NEGATIVE) 02/17/19 17:02 U Cannabinoids Screen NEGATIVE (NEGATIVE) 05/17/18 17:02 - Physical Exam Vitals and I&O: Vital Signs Temp 98.8 F 05/19/18 16:31 Pulse 79 05/19/18 16:31 Resp 18 05/19/18 16:31 BP 128/68 05/19/18 16:31 Pulse Ox 97 05/19/18 16:31 Intake & Output 05/18/18 05/19/18 05/19/18 18:59 06:59 18:59 Intake Total 1150 898.75 805 Output Total 60 1200 Balance 1090 -301.25 805 Weight (lbs) 153 lb 153 lb Intake: Intake, IV Amount 1150 898.75 805 D5-0.45NS 1,000 ml @ 75 1000 898.75 805 mls/hr IV .[id number] [facility] Rx #:[id number] Levofloxacin 500mg/100mL 100 500 mg In 100 ml @ 100 mls/hr IV Q24HR [facility] Rx#: [id number] ceFAZolin 1 gm In Sodium 50 Chloride 0.9% 50 ml @ 100 mls/hr IV Q8H [facility] Rx#: [id number] Output: Drainage 60 100 Right Lower Abdomen 60 100 Urine 1100 Other: Weight Source Bedscale Bedscale Active Medications: Current Medications Acetaminophen (Tylenol) 650 mg PO Q6H PRN PRN Reason: Pain Or Fever Above 101 Stop: 07/16/18 22:50 Albuterol Sulfate (Albuterol 2.5mg/3ml Neb Ud) 2.5 mg HHN Q2H PRN PRN Reason: Shortness of Breath Stop: 07/17/18 14:42 Dextrose/Sodium Chloride (D5-0.45ns) 1,000 mls @ 75 mls/hr IV .[id number] [facility] Stop: 07/16/18 19:36 Last Admin: 05/19/18 16:30 Dose: 75 mls/hr Levofloxacin (Levaquin Pb) 500 mg in 100 mls @ 100 mls/hr IV Q24HR [facility] Stop: 07/17/18 12:59 Last Admin: 05/19/18 12:03 Dose: 100 mls/hr Morphine Sulfate (Morphine) 1 mg IVP Q4H PRN PRN Reason: Pain (Moderate) Stop: 07/17/18 02:38 Last Admin: 05/18/18 05:05 Dose: 1 mg Morphine Sulfate (Morphine) 2 mg IVP Q4H PRN PRN Reason: Pain (Severe) Stop: 07/17/18 02:39 Last Admin: 05/19/18 16:31 Dose: 2 mg Ondansetron HCl (Zofran) 4 mg IVP Q6H PRN PRN Reason: Nausea / Vomiting Stop: 07/16/18 22:50 Last Admin: 05/18/18 11:20 Dose: 4 mg General: alert HEENT: NC/AT, PERRLA Neck: Supple Lungs: CTAB Cardiovascular: RRR, Normal S1, Normal S2 Abdomen: soft, non-distended, other (reny drain in place) Extremities: clear Neurological: alert - Procedures Procedures: Procedures Procedure Code Date BILAT TUBAL DIVISION NEC 66.32 02/08/02 [employer] [place] [employer] 39672 02/08/02 DX PROC FETUS/AMNION NEC 75.35 02/08/02 MONITORING NOS 75.34 02/08/02 MANUAL ASSIST DELIV NEC 73.59 02/08/02 OBSTETRICAL CARE 58728 02/08/02 OBSTETRICAL CARE 38916 12/20/00 RESECTION OF APPENDIX, OPEN APPROACH [id number] 05/17/18 Internal Medicine Assmt/Plan - Assessment Assessment: acute appendicitis colitis s/p appendectomy and drainage of abcess - Plan Plan: ambulate patient cont ivabx if patient is able to pass gas, have a BM and reny drain is dc'd then dc planning will occur. am labs Nutritional Asmnt/Malnutr-PDOC - Dietary Evaluation Malnutrition Findings (Please click <Entered> for more info): Nutritional Asmnt/Malnutrition Start: 05/18/18 14: 26 Text: Status: Complete Freq: Protocol: Document 05/18/18 14:26 FEROZ (Rec: 05/18/18 14:36 [email or web address]) Nutritional Asmnt/Malnutrition Patient General Information Nutritional Screening High Risk Consult Diagnosis acute appendicitis Pertinent Medical Hx/Surgical Hx gallstones, tubal ligation Subjective Information Consult received for diabetic. pt seen resting in bed at time of visit, s/p appendectomy day 1. Family at bedside, stated pt cook and eat at home, not following any diet restriction. Briefly explained healthy eating and balanced meal to family, and family verbalized understanding. Current Diet Order/ Nutrition Support clear liquid with Ensure clear TID Pertinent Medications D5-0.45ns, levaquin Pertinent Labs 05/18 Cr 0.4, Glucose 136 2/17 Cr 0.4, gluocse 116 Nutritional Hx/Data Height 5 ft Height (Calculated Centimeters) 152.4 Current Weight (lbs) 153 lb Weight (Calculated Kilograms) 69.4 Weight (Calculated Grams) 87659.6 [place] Body Weight 100 Body Mass Index (BMI) 29.9 Weight Status Overweight GI Symptoms GI Symptoms None Last BM none Difficult in: None Skin Integrity/Comment: intact Estimated Nutritional Goals BEE in Kcals: Using Current wt Calories/Kcals/Kg 23-27 Kcals Calculated 4030-3310 Protein: Using Current wt Protein g/k-1.2 Protein Calculated 70-84 Fluid: ml 1610-1890ml (1ml/kcal) Nutritional Problem 1. Problem Problem altered nutrition related labs Etiology hyperglycemia Signs/Symptoms: glucose 116-136 Malnutrition Alert Is there a minimum of two criteria No selected? Query Text:Check all the applicable criteria. A minimum of two criteria are recommended for diagnosis of either severe or non-severe malnutrition. Malnutrition Related to Morbid Obesity Malnutrition related to morbid obesity No Intervention/Recommendation Comments 1. Continue with clear liquid diet with ENsure Clear TID as ordered. Advance diet as tolerated. 2. Consider checking A1c level to assess the need for diabetic diet. 3. Monitor PO intake, wt, labs and skin integrity 4. F/U as high risk in 2-3 days Expected Outcomes/Goals Expected Outcomes/Goals 1. PO intake to meet at least 75% of nutritional needs. 2. Wt stability, skin to remain intact, labs to approach WNL.
[2018-05-20 05:27] LABS: % BASOPHILS 1.4 % (0.0-2.0); % EOSINOPHILS 5.8 % (0.0-5.0); % LYMPHOCYTES 36.2 % (20.0-50.0); % MONOCYTES 6.7 % (2.0-10.0); % NEUTROPHILS 49.9 % (40.0-80.0); BASOPHILE ABSOLUTE 0.2 Th/cumm (0-0.2); EOSINOPHILE ABSOLUTE 0.7 Th/cmm (0.1-0.4); HEMATOCRIT 39.3 % (41.0-60); HEMOGLOBIN 12.8 gm/dL (12-16); LYMPHOCYTE ABSOLUTE 4.3 Th/cmm (1.5-3.0); MEAN CELL VOLUME 85.3 fl (81-100); MEAN CORPUSCULAR HEMOGLOBIN 27.7 pg (27.0-31.0); MEAN CORPUSCULAR HGB CONC 32.5 pg (28.0-36.0); MEAN PLATELET VOLUME 8.2 fl; MONOCYTE ABSOLUTE 0.8 Th/cmm (0.3-1.0); NEUTROPHILE ABSOLUTE 5.9 Th/cmm (1.8-8.0); PLATELET COUNT 328 Th/cmm (150-400); RED CELL DISTRIBUTION WIDTH 11.8 % (11.5-20.0); WHITE BLOOD COUNT 11.9 Th/cmm (4.8-10.8)
[2018-05-20 05:36] LABS: ANION GAP 12.4 (7.0-16.0); BUN - UREA NITROGEN 10 mg/dL (7-25); CALCIUM SERUM 8.8 mg/dL (8.6-10.3); CARBON DIOXIDE 26.4 mEq/L (21.0-31.0); CHLORIDE 103 mEq/L (98-107); CREATININE - SERUM 0.4 mg/dL (0.6-1.2); GFR AFRICAN-AMERICAN > 60.0 ml/min (>90); GFR NON AFRICAN-AMERICAN > 60.0 ml/min; GLUCOSE 125 mg/dL (70-105); POTASSIUM SERUM 3.8 mEq/L (3.5-5.1); SODIUM SERUM 138 mEq/L (136-145)
[2018-05-20] MEDS: D5-0.45NS 1,000 ML IV SCH ×2 (05:41→17:27)
--- NOTE | 2018-05-20 10:27 | Internal Medicine Prog Note ---
Internal Medicine Subjective - Subjective Service Date: 05/20/18 Patient seen and examined:: chart reviewed Patient is:: awake, verbal, denies any new complaints Patient Complaints of:: other (Pain is well controlled.) Per staff patient has:: no adverse event, no episodes of fall, tolerating meds Internal Medicine Objective - Results Result Diagrams: 05/20/18 05:05 05/20/18 05:05 Recent Labs: Laboratory Last Values WBC 11.9 Th/cmm (4.8-10.8) H 05/20/18 05:05 RBC 4.60 Mil/cmm (3.80-5.10) 05/20/18 05:05 Hgb 12.8 gm/dL (12-16) 05/20/18 05:05 Hct 39.3 % (41.0-60) L 05/20/18 05:05 MCV 85.3 fl (81-100) 05/20/18 05:05 MCH 27.7 pg (27.0-31.0) 05/20/18 05:05 MCHC Differential 32.5 pg (28.0-36.0) 05/20/18 05:05 RDW 11.8 % (11.5-20.0) 05/20/18 05:05 Plt Count 328 Th/cmm (150-400) 05/20/18 05:05 MPV 8.2 fl 05/20/18 05:05 Neutrophils % 49.9 % (40.0-80.0) 05/20/18 05:05 Lymphocytes % 36.2 % (20.0-50.0) 05/20/18 05:05 Monocytes % 6.7 % (2.0-10.0) 05/20/18 05:05 Eosinophils % 5.8 % (0.0-5.0) H 05/20/18 05:05 Basophils % 1.4 % (0.0-2.0) 05/20/18 05:05 PT 9.3 SECONDS (9.5-11.5) L 05/17/18 17:00 INR 0.88 (0.5-1.4) 05/17/18 17:00 PTT (Actin FS) 24.7 SECONDS (26.0-38.0) L 05/17/18 17:00 Sodium 138 mEq/L (136-145) 05/20/18 05:05 Potassium 3.8 mEq/L (3.5-5.1) 05/20/18 05:05 Chloride 103 mEq/L (98-107) 05/20/18 05:05 Carbon Dioxide 26.4 mEq/L (21.0-31.0) 05/20/18 05:05 Anion Gap 12.4 (7.0-16.0) 05/20/18 05:05 BUN 10 mg/dL (7-25) 05/20/18 05:05 Creatinine 0.4 mg/dL (0.6-1.2) L 05/20/18 05:05 Est GFR ( Amer) > 60.0 ml/min (>90) 05/20/18 05:05 Est GFR (Non-Af Amer) > 60.0 ml/min 05/20/18 05:05 BUN/Creatinine Ratio 25.0 05/20/18 05:05 Glucose 125 mg/dL (70-105) H 05/20/18 05:05 POC Glucose 170 MG/DL (70 - 105) H 05/17/18 21:41 Whole Bld Lactic Acid 0.96 mmol/L (0.60-1.99) 05/17/18 17:00 Calcium 8.8 mg/dL (8.6-10.3) 05/20/18 05:05 Phosphorus 3.6 mg/dL (2.5-5.0) 05/17/18 17:00 Magnesium 2.0 mg/dL (1.9-2.7) 05/17/18 17:00 Total Bilirubin 0.8 mg/dL (0.3-1.0) 05/18/18 04:40 AST 12 U/L (13-39) L 05/18/18 04:40 ALT 10 U/L (7-52) 05/18/18 04:40 Alkaline Phosphatase 44 U/L (34-104) 05/18/18 04:40 Total Protein 5.8 gm/dL (6.0-8.3) L 05/18/18 04:40 Albumin 3.5 gm/dL (3.7-5.3) L 05/18/18 04:40 Globulin 2.3 gm/dL 05/18/18 04:40 Albumin/Globulin Ratio 1.5 (1.0-1.8) 05/18/18 04:40 Amylase 31 U/L (29-103) 05/17/18 17:00 Lipase 7 U/L (11-82) L 05/17/18 17:00 Urine Source CLEAN C 05/17/18 17:02 Urine Color STRAW 05/17/18 17:02 Urine Clarity CLEAR (CLEAR) 05/17/18 17:02 Urine pH 7.0 (4.6 - 8.0) 05/17/18 17:02 Ur Specific [place] 1.020 (1.005-1.030) 05/17/18 17:02 Urine Protein TRACE mg/dL (NEGATIVE) 05/17/18 17:02 Urine Glucose (UA) NEGATIVE mg/dL (NEGATIVE) 05/17/18 17:02 Urine Ketones NEGATIVE mg/dL (NEGATIVE) 05/17/18 17:02 Urine Blood NEGATIVE (NEGATIVE) 05/17/18 17:02 Urine Nitrate NEGATIVE (NEGATIVE) 05/17/18 17:02 Urine Bilirubin NEGATIVE (NEGATIVE) 05/17/18 17:02 Urine Urobilinogen 1.0 E.U./dL (0.2 - 1.0) 05/17/18 17:02 Ur Leukocyte Esterase NEGATIVE (NEGATIVE) 05/17/18 17:02 Urine RBC NONE SEEN /hpf (0-5) 05/17/18 17:02 Urine WBC NONE SEEN /hpf (0-5) 05/17/18 17:02 Ur Epithelial Cells RARE /lpf (FEW) 05/17/18 17:02 Urine Bacteria NONE SEEN /hpf (NONE SEEN) 05/17/18 17:02 Urine Opiates Screen NEGATIVE (NEGATIVE) 05/17/18 17:02 Urine Methadone Screen NEGATIVE (NEGATIVE) 05/17/18 17:02 Ur Barbiturates Screen NEGATIVE (NEGATIVE) 05/17/18 17:02 Ur Tricyclics Screen NEGATIVE (NEGATIVE) 05/17/18 17:02 Ur Phencyclidine Scrn NEGATIVE (NEGATIVE) 05/17/18 17:02 Amphetamines Screen NEGATIVE (NEGATIVE) 05/17/18 17:02 U Methamphetamines Scrn NEGATIVE (NEGATIVE) 05/17/18 17:02 U Benzodiazepines Scrn NEGATIVE (NEGATIVE) 05/17/18 17:02 U Cocaine Metab Screen NEGATIVE (NEGATIVE) 05/17/18 17:02 U Cannabinoids Screen NEGATIVE (NEGATIVE) 05/17/18 17:02 - Physical Exam Vitals and I&O: Vital Signs Temp 97.7 F 05/20/18 08:00 Pulse 69 05/20/18 08:00 Resp 18 05/20/18 08:00 BP 121/67 05/20/18 08:00 Pulse Ox 96 05/20/18 08:00 Intake & Output 05/19/18 05/20/18 05/20/18 18:59 06:59 18:59 Intake Total 2004 988.75 Output Total 2150 Balance -145 988.75 Weight (lbs) 70.76 kg Intake: Intake, IV Amount 805 988.75 D5-0.45NS 1,000 ml @ 75 805 988.75 mls/hr IV .[id number] [facility] Rx #:[id number] Oral 1200 Output: Drainage 50 Right Lower Abdomen 50 Urine 2100 Other: # Bowel Movements 0 Weight Source Bedscale Active Medications: Current Medications Acetaminophen (Tylenol) 650 mg PO Q6H PRN PRN Reason: Pain Or Fever Above 101 Stop: 07/16/18 22:50 Albuterol Sulfate (Albuterol 2.5mg/3ml Neb Ud) 2.5 mg HHN Q2H PRN PRN Reason: Shortness of Breath Stop: 07/17/18 14:42 Dextrose/Sodium Chloride (D5-0.45ns) 1,000 mls @ 75 mls/hr IV .[id number] [facility] Stop: 07/16/18 19:36 Last Admin: 05/20/18 05:41 Dose: 75 mls/hr Levofloxacin (Levaquin Pb) 500 mg in 100 mls @ 100 mls/hr IV Q24HR [facility] Stop: 07/17/18 12:59 Last Admin: 05/19/18 12:03 Dose: 100 mls/hr Morphine Sulfate (Morphine) 1 mg IVP Q4H PRN PRN Reason: Pain (Moderate) Stop: 07/17/18 02:38 Last Admin: 05/18/18 05:05 Dose: 1 mg Morphine Sulfate (Morphine) 2 mg IVP Q4H PRN PRN Reason: Pain (Severe) Stop: 07/17/18 02:39 Last Admin: 05/19/18 20:35 Dose: 2 mg Ondansetron HCl (Zofran) 4 mg IVP Q6H PRN PRN Reason: Nausea / Vomiting Stop: 07/16/18 22:50 Last Admin: 05/18/18 11:20 Dose: 4 mg General: weak, alert, other (Advised to ambulate with assistance.) HEENT: NC/AT, PERRLA Neck: Supple Lungs: CTAB Cardiovascular: RRR, Normal S1, Normal S2 Abdomen: soft, non-distended, other (reny drain in place) Extremities: clear Neurological: alert - Procedures Procedures: Procedures Procedure Code Date BILAT TUBAL DIVISION NEC 66.32 02/08/02 [employer] [place] [employer] 92526 02/08/02 DX PROC FETUS/AMNION NEC 75.35 02/08/02 MONITORING NOS 75.34 02/08/02 MANUAL ASSIST DELIV NEC 73.59 02/08/02 OBSTETRICAL CARE 23633 02/08/02 OBSTETRICAL CARE 22911 12/20/00 RESECTION OF APPENDIX, OPEN APPROACH [id number] 05/17/18 Internal Medicine Assmt/Plan - Assessment Assessment: Anorexia Leukocytosis Cholithiasis HTN Acute Appendicitis with perforation, S/p surgery Current Active Problems Problem Status Onset RIGHT FLANK PAIN Acute - Plan Plan: Continue to monitor patient closely Continue IV antibiotics and present meds as directed Monitor diet/nutritional support Monitor Pain, Pain Management Monitor Vitals/Blood pressure fall precaution supportive care continue present management Nutritional Asmnt/Malnutr-PDOC - Dietary Evaluation Malnutrition Findings (Please click <Entered> for more info): Nutritional Asmnt/Malnutrition Start: 05/18/18 14: 26 Text: Status: Complete Freq: Protocol: Document 05/18/18 14:26 LCHENG (Rec: 05/18/18 14:36 LCHENG [email or web address]) Nutritional Asmnt/Malnutrition Patient General Information Nutritional Screening High Risk Consult Diagnosis acute appendicitis Pertinent Medical Hx/Surgical Hx gallstones, tubal ligation Subjective Information Consult received for diabetic. pt seen resting in bed at time of visit, s/p appendectomy day 1. Family at bedside, stated pt cook and eat at home, not following any diet restriction. Briefly explained healthy eating and balanced meal to family, and family verbalized understanding. Current Diet Order/ Nutrition Support clear liquid with Ensure clear TID Pertinent Medications D5-0.45ns, levaquin Pertinent Labs 05/18 Cr 0.4, Glucose 136 2/17 Cr 0.4, gluocse 116 Nutritional Hx/Data Height 1.52 m Height (Calculated Centimeters) 152.4 Current Weight (lbs) 69.4 kg Weight (Calculated Kilograms) 69.4 Weight (Calculated Grams) 66718.6 [place] Body Weight 100 Body Mass Index (BMI) 29.9 Weight Status Overweight GI Symptoms GI Symptoms None Last BM none Difficult in: None Skin Integrity/Comment: intact Estimated Nutritional Goals BEE in Kcals: Using Current wt Calories/Kcals/Kg 23-27 Kcals Calculated 2245-9488 Protein: Using Current wt Protein g/k-1.2 Protein Calculated 70-84 Fluid: ml 1610-1890ml (1ml/kcal) Nutritional Problem 1. Problem Problem altered nutrition related labs Etiology hyperglycemia Signs/Symptoms: glucose 116-136 Malnutrition Alert Is there a minimum of two criteria No selected? Query Text:Check all the applicable criteria. A minimum of two criteria are recommended for diagnosis of either severe or non-severe malnutrition. Malnutrition Related to Morbid Obesity Malnutrition related to morbid obesity No Intervention/Recommendation Comments 1. Continue with clear liquid diet with ENsure Clear TID as ordered. Advance diet as tolerated. 2. Consider checking A1c level to assess the need for diabetic diet. 3. Monitor PO intake, wt, labs and skin integrity 4. F/U as high risk in 2-3 days Expected Outcomes/Goals Expected Outcomes/Goals 1. PO intake to meet at least 75% of nutritional needs. 2. Wt stability, skin to remain intact, labs to approach WNL.
[2018-05-20] MEDS: Levofloxacin 500mg/100mL 500 MG/100 ML BAG IV SCH (12:00)
[2018-05-20] MEDS: Morphine Sulfate 2 mg/mL 1mL Syr IVP PRN ×2 (12:27→18:49)
[2018-05-20] MEDS: Lactulose 10 Gm/15 mL 30mL UDC PO SCH ×2 (15:37→21:49)
--- NOTE | 2018-05-20 17:46 | Infectious Disease Prog Note ---
Infectious Disease Subjective - Review of Systems Service Date: 05/19/18 Subjective: cc appendicitis s/p sx hpi- wbc decreased on iv abx cx pending rosno efevr o/e vs [place] claer abd soft e clean wound ext pilse wbc 17 k Microbiology 05/17/18 22:45 Appendix - Final 05/17/18 22:45 Appendix Aerobic Culture - Preliminary 05/17/18 22:45 Appendix Anaerobic Culture - Preliminary 05/17/18 17:30 Blood - Preliminary NO GROWTH AFTER 48 HOURS 05/17/18 19:50 Nares - Final NO MRSA ISOLATED Laboratory Results - last 24 hr 05/20/18 05/20/18 05:05 05:05 WBC 11.9 H RBC 4.60 Hgb 12.8 Hct 39.3 L MCV 85.3 MCH 27.7 MCHC Differential 32.5 RDW 11.8 Plt Count 328 MPV 8.2 Neutrophils % 49.9 Lymphocytes % 36.2 Monocytes % 6.7 Eosinophils % 5.8 H Basophils % 1.4 Sodium 138 Potassium 3.8 Chloride 103 Carbon Dioxide 26.4 Anion Gap 12.4 BUN 10 Creatinine 0.4 L Est GFR ( Amer) > 60.0 Est GFR (Non-Af Amer) > 60.0 BUN/Creatinine Ratio 25.0 Glucose 125 H Calcium 8.8 Diagnoses SEPSIS, UNSPECIFIED ORGANISM (05/17/18) ACUTE APPENDICITIS WITH PERF AND LOC PERITONITIS, WITH ABSCS (05/17/18) WEAKNESS (05/17/18) Current Medications Acetaminophen (Tylenol) 650 mg PO Q6H PRN PRN Reason: Pain Or Fever Above 101 Stop: 07/16/18 22:50 Albuterol Sulfate (Albuterol 2.5mg/3ml Neb Ud) 2.5 mg HHN Q2H PRN PRN Reason: Shortness of Breath Stop: 07/17/18 14:42 Dextrose/Sodium Chloride (D5-0.45ns) 1,000 mls @ 75 mls/hr IV .[id number] [facility] Stop: 07/16/18 19:36 Last Admin: 05/20/18 17:27 Dose: 75 mls/hr Levofloxacin (Levaquin Pb) 500 mg in 100 mls @ 100 mls/hr IV Q24HR [facility] Stop: 07/17/18 12:59 Last Admin: 05/20/18 12:00 Dose: 100 mls/hr Lactulose (Cephulac) 30 gm PO TID [facility] Stop: 07/19/18 15:29 Last Admin: 05/20/18 15:37 Dose: 30 gm Morphine Sulfate (Morphine) 1 mg IVP Q4H PRN PRN Reason: Pain (Moderate) Stop: 07/17/18 02:38 Last Admin: 05/18/18 05:05 Dose: 1 mg Morphine Sulfate (Morphine) 2 mg IVP Q4H PRN PRN Reason: Pain (Severe) Stop: 07/17/18 02:39 Last Admin: 05/20/18 12:27 Dose: 2 mg Ondansetron HCl (Zofran) 4 mg IVP Q6H PRN PRN Reason: Nausea / Vomiting Stop: 07/16/18 22:50 Last Admin: 05/18/18 11:20 Dose: 4 mg Allergies Allergy/AdvReac Type Severity Reaction Status Date / Time aspirin Allergy Verified 11/20/15 22:04 Acetaminophen (Tylenol) 650 mg PO Q6H PRN PRN Reason: Pain Or Fever Above 101 Stop: 07/16/18 22:50 Albuterol Sulfate (Albuterol 2.5mg/3ml Neb Ud) 2.5 mg HHN Q2H PRN PRN Reason: Shortness of Breath Stop: 07/17/18 14:42 Dextrose/Sodium Chloride (D5-0.45ns) 1,000 mls @ 75 mls/hr IV .[id number] [facility] Stop: 07/16/18 19:36 Last Infusion: 05/20/18 17:27 Dose: 75 mls/hr Medication Infusion/Titration Document 05/20/18 17:27 DLOZADA (Rec: 05/20/18 17:27 DLOZADA JAMIE-WOW- MS5) Intake Titration Intake 882.5 Cumulative Intake 882.5 Cumulative Intake (Rx) 4575 Container Volume 0 Volume Adjustment/Waste 117.5 Dosing IV Rate 75 Increase/Decrease Infused Cumulative Dose Not Applicable Time Elapsed Time 61h 0m Admin: 05/20/18 17:27 Dose: 75 mls/hr MAR IV Start Time Document 05/20/18 17:27 DLOZADA (Rec: 05/20/18 17:27 DLOZADA JAMIE-WOW- MS5) IV Start Time MAR IV Start Time 17:27 IV Site MAR IV Site Left Antecubital Medication Infusion/Titration Document 05/20/18 17:27 DLOZADA (Rec: 05/20/18 17:27 DLOZADA JAMIE-WOW- MS5) Intake Cumulative Intake (Rx) 4575 Container Volume 1,000 Volume Adjustment/Waste 0 Dosing IV Rate 75 Increase/Decrease Started/Running Cumulative Dose Not Applicable Time Elapsed Time 61h 0m Admin: 05/20/18 05:41 Dose: 75 mls/hr MAR IV Start Time Document 05/20/18 05:41 [email or web address] (Rec: 05/20/18 05:42 [email or web address] WOW-[email or web address]) IV Start Time [facility] IV Start Time 05:42 IV Site MAR IV Site Left Antecubital Medication Infusion/Titration Document 05/20/18 05:41 [email or web address] (Rec: 05/20/18 05:42 [email or web address] WOW-[email or web address]) Intake Cumulative Intake (Rx) 3692.5 Container Volume 1,000 Volume Adjustment/Waste 0 Dosing IV Rate 75 Increase/Decrease Started/Running Cumulative Dose Not Applicable Time Elapsed Time 49h 14m Infusion: 05/20/18 05:41 Dose: 75 mls/hr Medication Infusion/Titration Document 05/20/18 05:41 [email or web address] (Rec: 05/20/18 05:42 [email or web address] WOW-ED4) Intake Titration Intake 988.75 Cumulative Intake 988.75 Cumulative Intake (Rx) 3692.5 Container Volume 0 Volume Adjustment/Waste 11.25 Dosing IV Rate 75 Increase/Decrease Infused Cumulative Dose Not Applicable Time Elapsed Time 49h 14m Infusion: 05/19/18 16:30 Dose: 75 mls/hr Medication Infusion/Titration Document 05/19/18 16:30 JCENDANA (Rec: 05/19/18 16:31 JCENDANA JAMIEWOW -MS3) Intake Titration Intake 805 Cumulative Intake 805 Cumulative Intake (Rx) 2703.75 Container Volume 0 Volume Adjustment/Waste 195 Dosing IV Rate 75 Increase/Decrease Infused Cumulative Dose Not Applicable Time Elapsed Time 36h 3m Admin: 05/19/18 16:30 Dose: 75 mls/hr MAR IV Start Time Document 05/19/18 16:30 JCENDANA (Rec: 05/19/18 16:31 JCENDANA JAMIE-WOW -MS3) IV Start Time MAR IV Start Time 16:31 IV Site MAR IV Site Left Antecubital Medication Infusion/Titration Document 05/19/18 16:30 JCENDANA (Rec: 05/19/18 16:31 JCENDANA JAMIE-WOW -MS3) Intake Cumulative Intake (Rx) 2703.75 Container Volume 1,000 Volume Adjustment/Waste 0 Dosing IV Rate 75 Increase/Decrease Started/Running Cumulative Dose Not Applicable Time Elapsed Time 36h 3m Admin: 05/19/18 05:46 Dose: 75 mls/hr MAR IV Start Time Document 05/19/18 05:46 [email or web address] (Rec: 05/19/18 05:46 [email or web address] JAMIE-WOW -MS5) IV Start Time MAR IV Start Time 05:46 IV Site MAR IV Site Left Antecubital Medication Infusion/Titration Document 05/19/18 05:46 [email or web address] (Rec: 05/19/18 05:46 [email or web address] JAMIE-WOW -MS5) Intake Cumulative Intake (Rx) 1898.75 Container Volume 1,000 Volume Adjustment/Waste 0 Dosing IV Rate 75 Increase/Decrease Started/Running Cumulative Dose Not Applicable Time Elapsed Time 25h 19m Infusion: 05/19/18 05:46 Dose: 75 mls/hr Medication Infusion/Titration Document 05/19/18 05:46 [email or web address] (Rec: 05/19/18 05:46 [email or web address] JAMIE-WOW -MS5) Intake Titration Intake 898.75 Cumulative Intake 898.75 Cumulative Intake (Rx) 1898.75 Container Volume 0 Volume Adjustment/Waste 101.25 Dosing IV Rate 75 Increase/Decrease Infused Cumulative Dose Not Applicable Time Elapsed Time 25h 19m Admin: 05/18/18 17:47 Dose: 75 mls/hr MAR IV Start Time Document 05/18/18 17:47 DDAVIS (Rec: 05/18/18 17:48 DDAVIS [id number] ) IV Start Time MAR IV Start Time 17:48 IV Site MAR IV Site Left Antecubital Medication Infusion/Titration Document 05/18/18 17:47 DDAVIS (Rec: 05/18/18 17:48 DDAVIS [id number] ) Intake Cumulative Intake (Rx) 1000 Container Volume 1,000 Volume Adjustment/Waste 0 Dosing IV Rate 75 Increase/Decrease Started/Running Cumulative Dose Not Applicable Time Elapsed Time 13h 20m Infusion: 05/18/18 14:20 Dose: 75 mls/hr Medication Infusion/Titration Document 05/18/18 14:20 DDAVIS (Rec: 05/18/18 17:48 DDAVIS [id number] ) Intake Titration Intake 1,000 Cumulative Intake 1,000 Cumulative Intake (Rx) 1000 Container Volume 0 Volume Adjustment/Waste 0 Dosing IV Rate 75 Increase/Decrease Infused Cumulative Dose Not Applicable Time Elapsed Time 13h 20m Admin: 05/18/18 01:00 Dose: 75 mls/hr MAR IV Start Time Document 05/18/18 01:00 SLOERA (Rec: 05/18/18 06:28 SLOERA WO-ED4) IV Start Time MAR IV Start Time 01:00 IV Site MAR IV Site Left Antecubital Medication Infusion/Titration Document 05/18/18 01:00 SLOERA (Rec: 05/18/18 06:28 SLOERA WOW-ED4) Intake Container Volume 1,000 Volume Adjustment/Waste 0 Dosing IV Rate 75 Increase/Decrease Started Cumulative Dose Not Applicable Time Elapsed Time 0m Levofloxacin (Levaquin Pb) 500 mg in 100 mls @ 100 mls/hr IV Q24HR [facility] Stop: 07/17/18 12:59 Last Admin: 05/20/18 12:00 Dose: 100 mls/hr [facility] Fluoroquinolone Assessment Document 05/20/18 12:00 DLOZADA (Rec: 05/20/18 12:01 DLOZADA JAMIELYNN- MS5) Fluoroquinolone Side Effects Unusual joint or tendon pain? No Muscle Weakness? No Tingling or prickling sensation, pins No and needles? Numbness in the arms or legs? No Confusion? No Hallucinations? No MAR IV Start Time Document 05/20/18 12:00 DLOZADA (Rec: 05/20/18 12:01 DLOZADA JAMIEMARIA DOLORES- MS5) IV Start Time [facility] IV Start Time 12:00 IV Site MAR IV Site Left Antecubital Medication Infusion/Titration Document 05/20/18 12:00 DLOZADA (Rec: 05/20/18 12:01 DLOZADA JAMIEMARIA DOLORES- MS5) Intake Cumulative Intake (Rx) 200 Container Volume 100 Volume Adjustment/Waste 0 Dosing IV Rate 100 Increase/Decrease Started/Running Cumulative Dose 1000 Time Elapsed Time 2h 0m Infusion: 05/19/18 13:03 Dose: 100 mls/hr Medication Infusion/Titration Document 05/19/18 13:03 DLOZADA (Rec: 05/20/18 12:01 DLOZADA JAMIE-WOW- MS5) Intake Titration Intake 100 Cumulative Intake 100 Cumulative Intake (Rx) 200 Container Volume 0 Volume Adjustment/Waste 0 Dosing IV Rate 100 Increase/Decrease Infused Cumulative Dose 1000 Time Elapsed Time 2h 0m Admin: 05/19/18 12:03 Dose: 100 mls/hr MAR Fluoroquinolone Assessment Document 05/19/18 12:03 JCENDANA (Rec: 05/19/18 12:03 JCENDANA JAMIE-WOW -MS3) Fluoroquinolone Side Effects Unusual joint or tendon pain? No Muscle Weakness? No Tingling or prickling sensation, pins No and needles? Numbness in the arms or legs? No Confusion? No Hallucinations? No MAR IV Start Time Document 05/19/18 12:03 JCENDANA (Rec: 05/19/18 12:03 JCENDANA JAMIE-WOW -MS3) IV Start Time MAR IV Start Time 12:03 IV Site MAR IV Site Left Antecubital Medication Infusion/Titration Document 05/19/18 12:03 JCENDANA (Rec: 05/19/18 12:03 JCENDANA JAMIE-WOW -MS3) Intake Cumulative Intake (Rx) 100 Container Volume 100 Volume Adjustment/Waste 0 Dosing IV Rate 100 Increase/Decrease Started/Running Cumulative Dose 500 Time Elapsed Time 1h 0m Infusion: 05/18/18 14:14 Dose: 100 mls/hr Medication Infusion/Titration Document 05/18/18 14:14 JCENDANA (Rec: 05/19/18 12:03 JCENDANA JAMIE-WOW -MS3) Intake Titration Intake 100 Cumulative Intake 100 Cumulative Intake (Rx) 100 Container Volume 0 Volume Adjustment/Waste 0 Dosing IV Rate 100 Increase/Decrease Infused Cumulative Dose 500 Time Elapsed Time 1h 0m Admin: 05/18/18 13:14 Dose: 100 mls/hr MAR Fluoroquinolone Assessment Document 05/18/18 13:14 ACLAUDIO (Rec: 05/18/18 13:15 ACLAUDIO JAMIE-WOW -MS5) Fluoroquinolone Side Effects Unusual joint or tendon pain? No Muscle Weakness? No Tingling or prickling sensation, pins No and needles? Numbness in the arms or legs? No Confusion? No Hallucinations? No MAR IV Start Time Document 05/18/18 13:14 ACLAUDIO (Rec: 05/18/18 13:15 ACLAUDIO JAMIE-WOW -MS5) IV Start Time MAR IV Start Time 13:14 IV Site MAR IV Site Left Antecubital Medication Infusion/Titration Document 05/18/18 13:14 ACLAUDIO (Rec: 05/18/18 13:15 ACLAUDIO JAMIE-WOW -MS5) Intake Container Volume 100 Volume Adjustment/Waste 0 Dosing IV Rate 100 Increase/Decrease Started Time Elapsed Time 0m Lactulose (Cephulac) 30 gm PO TID [facility] Stop: 07/19/18 15:29 Last Admin: 05/20/18 15:37 Dose: 30 gm Morphine Sulfate (Morphine) 1 mg IVP Q4H PRN PRN Reason: Pain (Moderate) Stop: 07/17/18 02:38 Last Admin: 05/18/18 05:05 Dose: 1 mg MAR Pain Scale Document 05/18/18 05:05 SLOERA (Rec: 05/18/18 05:05 SLOERA [id number]) Pain Scale Pain Scale 8 Re-Assess: MAR Pain Scale Document 05/18/18 06:05 SLOERA (Rec: 05/18/18 06:12 SLOERA WOW-ED4) Pain Scale Pain Scale 2 Morphine Sulfate (Morphine) 2 mg IVP Q4H PRN PRN Reason: Pain (Severe) Stop: 07/17/18 02:39 Last Admin: 05/20/18 12:27 Dose: 2 mg MAR Pain Scale Document 05/20/18 12:27 DLOZADA (Rec: 05/20/18 12:27 DLOZADA JAMIE-WOW- MS5) Pain Scale Pain Scale 5 Re-Assess: MAR Pain Scale Document 05/20/18 13:27 DLOZADA (Rec: 05/20/18 14:02 DLOZADA JAMIE-WOW- MS5) Pain Scale Pain Scale 0 Admin: 05/19/18 20:35 Dose: 2 mg MAR Pain Scale Document 05/19/18 20:35 [email or web address] (Rec: 05/19/18 20:35 [email or web address] JAMIE-WOW -MS1) Pain Scale Pain Scale 7 Re-Assess: MAR Pain Scale Document 05/19/18 21:35 [email or web address] (Rec: 05/19/18 21:35 [email or web address] JAMIE-WOW -MS1) Pain Scale Pain Scale 4 Admin: 05/19/18 16:31 Dose: 2 mg MAR Pain Scale Document 05/19/18 16:31 JCENDANA (Rec: 05/19/18 16:31 JCENDANA JAMIE-WOW -MS3) Pain Scale Pain Scale 6 Re-Assess: MAR Pain Scale Document 05/19/18 17:31 JCENDANA (Rec: 05/19/18 17:33 JCENDANA JAMIE-WOW -MS3) Pain Scale Pain Scale 0 Admin: 05/19/18 11:21 Dose: 2 mg MAR Pain Scale Document 05/19/18 11:21 JCENDANA (Rec: 05/19/18 11:21 JCENDANA JAMIE-WOW -MS3) Pain Scale Pain Scale 7 Re-Assess: MAR Pain Scale Document 05/19/18 12:21 JCENDANA (Rec: 05/19/18 12:21 JCENDANA JAMIE-WOW -MS3) Pain Scale Pain Scale 4 Admin: 05/18/18 19:39 Dose: 2 mg MAR Pain Scale Document 05/18/18 19:39 [email or web address] (Rec: 05/18/18 19:40 [email or web address] JAMIE-WOW -MS5) Pain Scale Pain Scale 6 Re-Assess: MAR Pain Scale Document 05/18/18 20:39 [email or web address] (Rec: 05/18/18 20:43 [email or web address] JAMIE-MS6 ) Pain Scale Pain Scale 5 Admin: 05/18/18 11:14 Dose: 2 mg MAR Pain Scale Document 05/18/18 11:14 JHAWKINS (Rec: 05/18/18 11:14 JHAWKINS WOW-ED3) Pain Scale Pain Scale 7 Re-Assess: MAR Pain Scale Document 05/18/18 12:14 JHAWKINS (Rec: 05/18/18 13:56 JHAWKINS JAMIE-WOW -MS1) Pain Scale Pain Scale 0 Ondansetron HCl (Zofran) 4 mg IVP Q6H PRN PRN Reason: Nausea / Vomiting Stop: 07/16/18 22:50 Last Admin: 05/18/18 11:20 Dose: 4 mg Discontinued Medications Bisacodyl (Dulcolax 10 Mg Supp) 10 mg RC X1 ONE Stop: 05/19/18 21:01 Last Admin: 05/19/18 21:35 Dose: 10 mg Lactated Ringer's (Lactated Ringer) 1,000 mls @ 999 mls/hr IV .Q1H1M ONE Stop: 05/17/18 17:49 Last Admin: 05/17/18 17:06 Dose: 999 mls/hr MAR IV Start Time Document 05/17/18 17:06 KSORIA (Rec: 05/17/18 17:06 KSORIA [id number] ) IV Start Time MAR IV Start Time 17:06 IV Site MAR IV Site Left Antecubital Medication Infusion/Titration Document 05/17/18 17:06 KSORIA (Rec: 05/17/18 17:06 KSORIA [id number] ) Intake Container Volume 1,000 Volume Adjustment/Waste 0 Dosing IV Rate 999 Increase/Decrease Started Cumulative Dose Not Applicable Time Elapsed Time 0m Re-Assess: MAR IV End Time Document 05/17/18 19:28 CAGRA (Rec: 05/17/18 19:29 CAGRA [id number]) IV End Time MAR IV End Time 19:20 IV Infused Total Amount Intake, IV Amount 1,000 Piperacillin Sod/Tazobactam (Sod 3.375 gm/ Sodium Chloride) 50 mls @ 100 mls/ hr IV X1 ONE Stop: 05/17/18 18:12 Last Admin: 05/17/18 17:57 Dose: 100 mls/hr MAR IV Start Time Document 05/17/18 17:57 KSORIA (Rec: 05/17/18 17:57 KSORIA [id number] ) IV Start Time MAR IV Start Time 17:57 IV Site MAR IV Site Left Antecubital Medication Infusion/Titration Document 05/17/18 17:57 KSORIA (Rec: 05/17/18 17:57 KSORIA [id number] ) Intake Container Volume 50 Volume Adjustment/Waste 0 Dosing IV Rate 100 Increase/Decrease Started Time Elapsed Time 0m Re-Assess: MAR IV End Time Document 05/17/18 19:29 CAGRA (Rec: 05/17/18 19:29 CAGRA [id number]) IV End Time MAR IV End Time 19:25 IV Infused Total Amount Intake, IV Amount 50 Dextrose/Lactated Ringer's (D5lr) 1,000 mls @ 999 mls/hr IV .Q1H1M ONE Stop: 05/17/18 20:32 Last Admin: 05/17/18 19:35 Dose: 999 mls/hr MAR IV Start Time Document 05/17/18 19:35 EARRIETA (Rec: 05/17/18 19:35 [facility] IV Start Time MAR IV Start Time 19:35 IV Site MAR IV Site Left Antecubital Medication Infusion/Titration Document 05/17/18 19:35 EARRIETA (Rec: 05/17/18 19:35 EARRIETA [facility] -ED7) Intake Container Volume 1,000 Volume Adjustment/Waste 0 Dosing IV Rate 999 Increase/Decrease Started Cumulative Dose Not Applicable Time Elapsed Time 0m Re-Assess: MAR IV End Time Document 05/17/18 20:19 CAGRA (Rec: 05/17/18 20:19 CAGRA [id number]) IV End Time MAR IV End Time 20:08 IV Infused Total Amount Intake, IV Amount 800 Dextrose/Lactated Ringer's (D5lr) 1,000 mls @ 125 mls/hr IV .Q8H ONE Stop: 05/18/18 03:32 Last Admin: 05/17/18 23:13 Dose: Ceftriaxone Sodium 1 gm/ (Sodium Chloride) 50 mls @ 100 mls/hr IV Q24HR [facility] Stop: 07/16/18 20:59 Last Admin: 05/17/18 23:31 Dose: Cefazolin Sodium 1 gm/ Sodium (Chloride) 50 mls @ 100 mls/hr IV Q8H [facility] Stop: 05/18/18 14:29 Last Admin: 05/18/18 14:21 Dose: 100 mls/hr MAR IV Start Time Document 05/18/18 14:21 MIROSLAVA (Rec: 05/18/18 14:21 MIROSLAVA WOW-ED3) IV Start Time MAR IV Start Time 14:21 IV Site MAR IV Site Left Antecubital Medication Infusion/Titration Document 05/18/18 14:21 MIROSLAVA (Rec: 05/18/18 14:21 MIROSLAVA WOW-ED3) Intake Cumulative Intake (Rx) 50 Container Volume 50 Volume Adjustment/Waste 0 Dosing IV Rate 100 Increase/Decrease Started/Running Cumulative Dose 0 Time Elapsed Time 36m Infusion: 05/18/18 07:04 Dose: 0 mls/hr Medication Infusion/Titration Document 05/18/18 07:04 SLOERA (Rec: 05/18/18 07:05 SLOERA JAMIE-MS6) Intake Titration Intake 50 Cumulative Intake 50 Cumulative Intake (Rx) 50 Container Volume 0 Volume Adjustment/Waste 0 Dosing IV Rate 0 Increase/Decrease Infused Cumulative Dose 0 Time Elapsed Time 36m Admin: 05/18/18 06:28 Dose: 100 mls/hr MAR IV Start Time Document 05/18/18 06:28 SLOERA (Rec: 05/18/18 06:28 SLOBRAXTON WOW-ED4) IV Start Time MAR IV Start Time 06:00 IV Site MAR IV Site Left Antecubital Medication Infusion/Titration Document 05/18/18 06:28 SLOERA (Rec: 05/18/18 06:28 SLOERA WOW-ED4) Intake Container Volume 50 Volume Adjustment/Waste 0 Dosing IV Rate 100 Increase/Decrease Started Time Elapsed Time 0m Metronidazole (Flagyl) 500 mg in 100 mls @ 100 mls/hr IV Q8HR [facility] Stop: 05/18/18 13:59 Metronidazole (Flagyl) 500 mg in 100 mls @ 100 mls/hr IV Q8H [facility] Stop: 05/18/18 12:59 Last Admin: 05/18/18 11:05 Dose: 100 mls/hr MAR IV Start Time Document 05/18/18 11:05 MIROSLAVA (Rec: 05/18/18 11:06 MIROSLAVA WOW-ED3) IV Start Time MAR IV Start Time 11:06 IV Site MAR IV Site Left Antecubital Medication Infusion/Titration Document 05/18/18 11:05 MIROSLAVA (Rec: 05/18/18 11:06 MIROSLAVA WOW-ED3) Intake Cumulative Intake (Rx) 100 Container Volume 100 Volume Adjustment/Waste 0 Dosing IV Rate 100 Increase/Decrease Started/Running Cumulative Dose 500 Time Elapsed Time 1h 9m Infusion: 05/18/18 06:00 Dose: 0 mls/hr Medication Infusion/Titration Document 05/18/18 06:00 SLOERA (Rec: 05/18/18 06:00 SLOERA [id number]) Intake Titration Intake 100 Cumulative Intake 100 Cumulative Intake (Rx) 100 Container Volume 0 Volume Adjustment/Waste 0 Dosing IV Rate 0 Increase/Decrease Infused Cumulative Dose 500 Time Elapsed Time 1h 9m Admin: 05/18/18 04:51 Dose: 100 mls/hr MAR IV Start Time Document 05/18/18 04:51 SLOERA (Rec: 05/18/18 04:51 SLOERA [id number]) IV Start Time MAR IV Start Time 04:00 IV Site MAR IV Site Left Antecubital Medication Infusion/Titration Document 05/18/18 04:51 SLOERA (Rec: 05/18/18 04:51 SLOERA WOW-ED4) Intake Container Volume 100 Volume Adjustment/Waste 0 Dosing IV Rate 100 Increase/Decrease Started Time Elapsed Time 0m Morphine Sulfate (Morphine) 2 mg IV NOW STA Stop: 05/17/18 18:09 Last Admin: 05/17/18 18:08 Dose: 2 mg MAR IV Start Time Document 05/17/18 18:08 KSORIA (Rec: 05/17/18 18:08 KSORIA [id number] ) IV Start Time MAR IV Start Time 18:08 IV Site MAR IV Site Left Antecubital MAR Pain Scale Document 05/17/18 18:08 KSORIA (Rec: 05/17/18 18:08 KSORIA [id number] ) Pain Scale Pain Scale 6 Re-Assess: MAR Pain Scale Document 05/17/18 19:08 EARRIETA (Rec: 05/17/18 19:39 EARRIETA JAMIE-WOW -ED7) Pain Scale Pain Scale 6 Morphine Sulfate (Morphine) 2 mg IV NOW STA Stop: 05/17/18 19:39 Last Admin: 05/17/18 23:12 Dose: MAR Pain Scale Document 05/17/18 23:12 SLOERA (Rec: 05/17/18 23:12 SLOERA JAMIE-MS6) Pain Scale Pain Scale 10 Morphine Sulfate (Morphine) 1 - 2 mg IVP Q4H PRN PRN Reason: Pain (Moderate) Stop: 07/16/18 19:44 Ondansetron HCl (Zofran) 4 mg IV NOW STA Stop: 05/17/18 18:14 Last Admin: 05/17/18 18:50 Dose: 4 mg MAR IV Start Time Document 05/17/18 18:50 TMINNIHAN (Rec: 05/17/18 18:51 TMINNIHAN JAMIE- WOW-[id number]) IV Start Time MAR IV Start Time 18:50 IV Site MAR IV Site Left Antecubital Pneumococcal Polyvalent Vaccine (Pneumovax) 0.5 ml IM .ONCE ONE Stop: 05/18/18 10:01 Last Admin: 05/18/18 17:46 Dose: Infectious Disease Objective - Results Result Diagrams: 05/20/18 05:05 05/20/18 05:05 Recent Labs: Laboratory Last Values WBC 11.9 Th/cmm (4.8-10.8) H 05/20/18 05:05 RBC 4.60 Mil/cmm (3.80-5.10) 05/20/18 05:05 Hgb 12.8 gm/dL (12-16) 05/20/18 05:05 Hct 39.3 % (41.0-60) L 05/20/18 05:05 MCV 85.3 fl (81-100) 05/20/18 05:05 MCH 27.7 pg (27.0-31.0) 05/20/18 05:05 MCHC Differential 32.5 pg (28.0-36.0) 05/20/18 05:05 RDW 11.8 % (11.5-20.0) 05/20/18 05:05 Plt Count 328 Th/cmm (150-400) 05/20/18 05:05 MPV 8.2 fl 05/20/18 05:05 Neutrophils % 49.9 % (40.0-80.0) 05/20/18 05:05 Lymphocytes % 36.2 % (20.0-50.0) 05/20/18 05:05 Monocytes % 6.7 % (2.0-10.0) 05/20/18 05:05 Eosinophils % 5.8 % (0.0-5.0) H 05/20/18 05:05 Basophils % 1.4 % (0.0-2.0) 05/20/18 05:05 PT 9.3 SECONDS (9.5-11.5) L 05/17/18 17:00 INR 0.88 (0.5-1.4) 05/17/18 17:00 PTT (Actin FS) 24.7 SECONDS (26.0-38.0) L 05/17/18 17:00 Sodium 138 mEq/L (136-145) 05/20/18 05:05 Potassium 3.8 mEq/L (3.5-5.1) 05/20/18 05:05 Chloride 103 mEq/L (98-107) 05/20/18 05:05 Carbon Dioxide 26.4 mEq/L (21.0-31.0) 05/20/18 05:05 Anion Gap 12.4 (7.0-16.0) 05/20/18 05:05 BUN 10 mg/dL (7-25) 05/20/18 05:05 Creatinine 0.4 mg/dL (0.6-1.2) L 05/20/18 05:05 Est GFR ( Amer) > 60.0 ml/min (>90) 05/20/18 05:05 Est GFR (Non-Af Amer) > 60.0 ml/min 05/20/18 05:05 BUN/Creatinine Ratio 25.0 05/20/18 05:05 Glucose 125 mg/dL (70-105) H 05/20/18 05:05 POC Glucose 170 MG/DL (70 - 105) H 05/17/18 21:41 Whole Bld Lactic Acid 0.96 mmol/L (0.60-1.99) 05/17/18 17:00 Calcium 8.8 mg/dL (8.6-10.3) 05/20/18 05:05 Phosphorus 3.6 mg/dL (2.5-5.0) 05/17/18 17:00 Magnesium 2.0 mg/dL (1.9-2.7) 05/17/18 17:00 Total Bilirubin 0.8 mg/dL (0.3-1.0) 05/18/18 04:40 AST 12 U/L (13-39) L 05/18/18 04:40 ALT 10 U/L (7-52) 05/18/18 04:40 Alkaline Phosphatase 44 U/L (34-104) 05/18/18 04:40 Total Protein 5.8 gm/dL (6.0-8.3) L 05/18/18 04:40 Albumin 3.5 gm/dL (3.7-5.3) L 05/18/18 04:40 Globulin 2.3 gm/dL 05/18/18 04:40 Albumin/Globulin Ratio 1.5 (1.0-1.8) 05/18/18 04:40 Amylase 31 U/L (29-103) 05/17/18 17:00 Lipase 7 U/L (11-82) L 05/17/18 17:00 Urine Source CLEAN C 05/17/18 17:02 Urine Color STRAW 05/17/18 17:02 Urine Clarity CLEAR (CLEAR) 05/17/18 17:02 Urine pH 7.0 (4.6 - 8.0) 05/17/18 17:02 Ur Specific [place] 1.020 (1.005-1.030) 05/17/18 17:02 Urine Protein TRACE mg/dL (NEGATIVE) 05/17/18 17:02 Urine Glucose (UA) NEGATIVE mg/dL (NEGATIVE) 05/17/18 17:02 Urine Ketones NEGATIVE mg/dL (NEGATIVE) 05/17/18 17:02 Urine Blood NEGATIVE (NEGATIVE) 05/17/18 17:02 Urine Nitrate NEGATIVE (NEGATIVE) 05/17/18 17:02 Urine Bilirubin NEGATIVE (NEGATIVE) 05/17/18 17:02 Urine Urobilinogen 1.0 E.U./dL (0.2 - 1.0) 05/17/18 17:02 Ur Leukocyte Esterase NEGATIVE (NEGATIVE) 05/17/18 17:02 Urine RBC NONE SEEN /hpf (0-5) 05/17/18 17:02 Urine WBC NONE SEEN /hpf (0-5) 05/17/18 17:02 Ur Epithelial Cells RARE /lpf (FEW) 05/17/18 17:02 Urine Bacteria NONE SEEN /hpf (NONE SEEN) 05/17/18 17:02 Urine Opiates Screen NEGATIVE (NEGATIVE) 05/17/18 17:02 Urine Methadone Screen NEGATIVE (NEGATIVE) 05/17/18 17:02 Ur Barbiturates Screen NEGATIVE (NEGATIVE) 05/17/18 17:02 Ur Tricyclics Screen NEGATIVE (NEGATIVE) 05/17/18 17:02 Ur Phencyclidine Scrn NEGATIVE (NEGATIVE) 05/17/18 17:02 Amphetamines Screen NEGATIVE (NEGATIVE) 05/17/18 17:02 U Methamphetamines Scrn NEGATIVE (NEGATIVE) 05/17/18 17:02 U Benzodiazepines Scrn NEGATIVE (NEGATIVE) 05/17/18 17:02 U Cocaine Metab Screen NEGATIVE (NEGATIVE) 05/17/18 17:02 U Cannabinoids Screen NEGATIVE (NEGATIVE) 05/17/18 17:02 - Physical Exam Vitals and I&O: Vital Signs Temp 98.6 F 05/20/18 15:35 Pulse 68 05/20/18 15:35 Resp 18 05/20/18 15:35 BP 146/78 05/20/18 15:35 Pulse Ox 96 05/20/18 15:35 Intake & Output 05/19/18 05/20/18 05/20/18 18:59 06:59 18:59 Intake Total 2105 988.75 1682.5 Output Total 2150 40 Balance -45 988.75 1642.5 Weight (lbs) 70.76 kg 70.76 kg Intake: Intake, IV Amount 905 988.75 882.5 D5-0.45NS 1,000 ml @ 75 805 988.75 882.5 mls/hr IV .[id number] [facility] Rx #:[id number] Levofloxacin 500mg/100mL 100 500 mg In 100 ml @ 100 mls/hr IV Q24HR [facility] Rx#: [id number] Oral 1200 800 Output: Drainage 50 40 Right Lower Abdomen 50 40 Urine 2100 Other: # Voids 4 # Bowel Movements 0 0 Weight Source Bedscale Bedscale Active Medications: Current Medications Acetaminophen (Tylenol) 650 mg PO Q6H PRN PRN Reason: Pain Or Fever Above 101 Stop: 07/16/18 22:50 Albuterol Sulfate (Albuterol 2.5mg/3ml Neb Ud) 2.5 mg HHN Q2H PRN PRN Reason: Shortness of Breath Stop: 07/17/18 14:42 Dextrose/Sodium Chloride (D5-0.45ns) 1,000 mls @ 75 mls/hr IV .[id number] [facility] Stop: 07/16/18 19:36 Last Admin: 05/20/18 17:27 Dose: 75 mls/hr Levofloxacin (Levaquin Pb) 500 mg in 100 mls @ 100 mls/hr IV Q24HR ISELA Stop: 07/17/18 12:59 Last Admin: 05/20/18 12:00 Dose: 100 mls/hr Lactulose (Cephulac) 30 gm PO TID ISELA Stop: 07/19/18 15:29 Last Admin: 05/20/18 15:37 Dose: 30 gm Morphine Sulfate (Morphine) 1 mg IVP Q4H PRN PRN Reason: Pain (Moderate) Stop: 07/17/18 02:38 Last Admin: 05/18/18 05:05 Dose: 1 mg Morphine Sulfate (Morphine) 2 mg IVP Q4H PRN PRN Reason: Pain (Severe) Stop: 07/17/18 02:39 Last Admin: 05/20/18 12:27 Dose: 2 mg Ondansetron HCl (Zofran) 4 mg IVP Q6H PRN PRN Reason: Nausea / Vomiting Stop: 07/16/18 22:50 Last Admin: 05/18/18 11:20 Dose: 4 mg - Procedures Procedures: Procedures Procedure Code Date BILAT TUBAL DIVISION NEC 66.32 02/08/02 [employer] [place] [employer] 69188 02/08/02 DX PROC FETUS/AMNION NEC 75.35 02/08/02 MONITORING NOS 75.34 02/08/02 MANUAL ASSIST DELIV NEC 73.59 02/08/02 OBSTETRICAL CARE 85145 02/08/02 OBSTETRICAL CARE 45266 12/20/00 RESECTION OF APPENDIX, OPEN APPROACH [id number] 05/17/18 Infectious Disease Assmt/Plan - Problem List Patient Problems: All Active Problems RIGHT FLANK PAIN (Acute) Nutritional Asmnt/Malnutr-PDOC - Dietary Evaluation Malnutrition Findings (Please click <Entered> for more info): Nutritional Asmnt/Malnutrition Start: 05/18/18 14: 26 Text: Status: Complete Freq: Protocol: Document 05/18/18 14:26 FEROZ (Rec: 05/18/18 14:36 [email or web address] [email or web address]) Nutritional Asmnt/Malnutrition Patient General Information Nutritional Screening High Risk Consult Diagnosis acute appendicitis Pertinent Medical Hx/Surgical Hx gallstones, tubal ligation Subjective Information Consult received for diabetic. pt seen resting in bed at time of visit, s/p appendectomy day 1. Family at bedside, stated pt cook and eat at home, not following any diet restriction. Briefly explained healthy eating and balanced meal to family, and family verbalized understanding. Current Diet Order/ Nutrition Support clear liquid with Ensure clear TID Pertinent Medications D5-0.45ns, levaquin Pertinent Labs /18 Cr 0.4, Glucose 136 2/17 Cr 0.4, gluocse 116 Nutritional Hx/Data Height 1.52 m Height (Calculated Centimeters) 152.4 Current Weight (lbs) 69.4 kg Weight (Calculated Kilograms) 69.4 Weight (Calculated Grams) 13247.6 [place] Body Weight 100 Body Mass Index (BMI) 29.9 Weight Status Overweight GI Symptoms GI Symptoms None Last BM none Difficult in: None Skin Integrity/Comment: intact Estimated Nutritional Goals BEE in Kcals: Using Current wt Calories/Kcals/Kg 23-27 Kcals Calculated 4621-6751 Protein: Using Current wt Protein g/k-1.2 Protein Calculated 70-84 Fluid: ml 1610-1890ml (1ml/kcal) Nutritional Problem 1. Problem Problem altered nutrition related labs Etiology hyperglycemia Signs/Symptoms: glucose 116-136 Malnutrition Alert Is there a minimum of two criteria No selected? Query Text:Check all the applicable criteria. A minimum of two criteria are recommended for diagnosis of either severe or non-severe malnutrition. Malnutrition Related to Morbid Obesity Malnutrition related to morbid obesity No Intervention/Recommendation Comments 1. Continue with clear liquid diet with ENsure Clear TID as ordered. Advance diet as tolerated. 2. Consider checking A1c level to assess the need for diabetic diet. 3. Monitor PO intake, wt, labs and skin integrity 4. F/U as high risk in 2-3 days Expected Outcomes/Goals Expected Outcomes/Goals 1. PO intake to meet at least 75% of nutritional needs. 2. Wt stability, skin to remain intact, labs to approach WNL.
--- NOTE | 2018-05-20 17:48 | Infectious Disease Prog Note ---
Infectious Disease Subjective - Review of Systems Service Date: 05/20/18 Events since last encounter: cc appendicitis s/p sx pt schedul efor discharge levaquin flafyl po prescribed ros nm ofevr o/e vs chest claer abd soft clean wound Vital Signs - 24 hr 05/19/18 05/20/18 05/20/18 20:00 00:00 04:00 Temp 99.3 F 98 F 97.9 F HR 75 74 71 RR 18 17 18 BP 132/71 116/68 166/78 O2 Sat % 97 95 98 05/20/18 05/20/18 05/20/18 08:00 11:49 15:35 Temp 97.7 F 97.9 F 98.6 F HR 69 75 68 RR 18 18 18 BP 121/67 116/66 146/78 O2 Sat % 96 96 96 Procedures BILAT TUBAL DIVISION NEC (02/08/02) DIVISION OF [place] TUBE (02/08/02) DX PROC FETUS/AMNION NEC (02/08/02) MONITORING NOS (02/08/02) MANUAL ASSIST DELIV NEC (02/08/02) OBSTETRICAL CARE (02/08/02) OBSTETRICAL CARE (12/20/00) RESECTION OF APPENDIX, OPEN APPROACH (05/17/18) Microbiology 05/17/18 22:45 Appendix - Final 05/17/18 22:45 Appendix Aerobic Culture - Preliminary 05/17/18 22:45 Appendix Anaerobic Culture - Preliminary 05/17/18 17:30 Blood - Preliminary NO GROWTH AFTER 48 HOURS 05/17/18 19:50 Nares - Final NO MRSA ISOLATED Laboratory Results - last 24 hr 05/20/18 05/20/18 05:05 05:05 WBC 11.9 H RBC 4.60 Hgb 12.8 Hct 39.3 L MCV 85.3 MCH 27.7 MCHC Differential 32.5 RDW 11.8 Plt Count 328 MPV 8.2 Neutrophils % 49.9 Lymphocytes % 36.2 Monocytes % 6.7 Eosinophils % 5.8 H Basophils % 1.4 Sodium 138 Potassium 3.8 Chloride 103 Carbon Dioxide 26.4 Anion Gap 12.4 BUN 10 Creatinine 0.4 L Est GFR ( Amer) > 60.0 Est GFR (Non-Af Amer) > 60.0 BUN/Creatinine Ratio 25.0 Glucose 125 H Calcium 8.8 Diagnoses SEPSIS, UNSPECIFIED ORGANISM (05/17/18) ACUTE APPENDICITIS WITH PERF AND LOC PERITONITIS, WITH ABSCS (05/17/18) WEAKNESS (05/17/18) Current Medications Acetaminophen (Tylenol) 650 mg PO Q6H PRN PRN Reason: Pain Or Fever Above 101 Stop: 07/16/18 22:50 Albuterol Sulfate (Albuterol 2.5mg/3ml Neb Ud) 2.5 mg HHN Q2H PRN PRN Reason: Shortness of Breath Stop: 07/17/18 14:42 Dextrose/Sodium Chloride (D5-0.45ns) 1,000 mls @ 75 mls/hr IV .[id number] [facility] Stop: 07/16/18 19:36 Last Admin: 05/20/18 17:27 Dose: 75 mls/hr Levofloxacin (Levaquin Pb) 500 mg in 100 mls @ 100 mls/hr IV Q24HR [facility] Stop: 07/17/18 12:59 Last Admin: 05/20/18 12:00 Dose: 100 mls/hr Lactulose (Cephulac) 30 gm PO TID [facility] Stop: 07/19/18 15:29 Last Admin: 05/20/18 15:37 Dose: 30 gm Morphine Sulfate (Morphine) 1 mg IVP Q4H PRN PRN Reason: Pain (Moderate) Stop: 07/17/18 02:38 Last Admin: 05/18/18 05:05 Dose: 1 mg Morphine Sulfate (Morphine) 2 mg IVP Q4H PRN PRN Reason: Pain (Severe) Stop: 07/17/18 02:39 Last Admin: 05/20/18 12:27 Dose: 2 mg Ondansetron HCl (Zofran) 4 mg IVP Q6H PRN PRN Reason: Nausea / Vomiting Stop: 07/16/18 22:50 Last Admin: 05/18/18 11:20 Dose: 4 mg Allergies Allergy/AdvReac Type Severity Reaction Status Date / Time aspirin Allergy Verified 11/20/15 22:04 Subjective: cc appendicitis s/p sx hpi- wbc decreased on iv abx cx pending rosno efevr o/e vs chaest claer abd soft e clean wound ext pilse wbc 17 k Microbiology 05/17/18 22:45 Appendix - Final 05/17/18 22:45 Appendix Aerobic Culture - Preliminary 05/17/18 22:45 Appendix Anaerobic Culture - Preliminary 05/17/18 17:30 Blood - Preliminary NO GROWTH AFTER 48 HOURS 05/17/18 19:50 Nares - Final NO MRSA ISOLATED Laboratory Results - last 24 hr 05/20/18 05/20/18 05:05 05:05 WBC 11.9 H RBC 4.60 Hgb 12.8 Hct 39.3 L MCV 85.3 MCH 27.7 MCHC Differential 32.5 RDW 11.8 Plt Count 328 MPV 8.2 Neutrophils % 49.9 Lymphocytes % 36.2 Monocytes % 6.7 Eosinophils % 5.8 H Basophils % 1.4 Sodium 138 Potassium 3.8 Chloride 103 Carbon Dioxide 26.4 Anion Gap 12.4 BUN 10 Creatinine 0.4 L Est GFR ( Amer) > 60.0 Est GFR (Non-Af Amer) > 60.0 BUN/Creatinine Ratio 25.0 Glucose 125 H Calcium 8.8 Diagnoses SEPSIS, UNSPECIFIED ORGANISM (05/17/18) ACUTE APPENDICITIS WITH PERF AND LOC PERITONITIS, WITH ABSCS (05/17/18) WEAKNESS (05/17/18) Current Medications Acetaminophen (Tylenol) 650 mg PO Q6H PRN PRN Reason: Pain Or Fever Above 101 Stop: 07/16/18 22:50 Albuterol Sulfate (Albuterol 2.5mg/3ml Neb Ud) 2.5 mg HHN Q2H PRN PRN Reason: Shortness of Breath Stop: 07/17/18 14:42 Dextrose/Sodium Chloride (D5-0.45ns) 1,000 mls @ 75 mls/hr IV .[id number] [facility] Stop: 07/16/18 19:36 Last Admin: 05/20/18 17:27 Dose: 75 mls/hr Levofloxacin (Levaquin Pb) 500 mg in 100 mls @ 100 mls/hr IV Q24HR [facility] Stop: 07/17/18 12:59 Last Admin: 05/20/18 12:00 Dose: 100 mls/hr Lactulose (Cephulac) 30 gm PO TID [facility] Stop: 07/19/18 15:29 Last Admin: 05/20/18 15:37 Dose: 30 gm Morphine Sulfate (Morphine) 1 mg IVP Q4H PRN PRN Reason: Pain (Moderate) Stop: 07/17/18 02:38 Last Admin: 05/18/18 05:05 Dose: 1 mg Morphine Sulfate (Morphine) 2 mg IVP Q4H PRN PRN Reason: Pain (Severe) Stop: 07/17/18 02:39 Last Admin: 05/20/18 12:27 Dose: 2 mg Ondansetron HCl (Zofran) 4 mg IVP Q6H PRN PRN Reason: Nausea / Vomiting Stop: 07/16/18 22:50 Last Admin: 05/18/18 11:20 Dose: 4 mg Allergies Allergy/AdvReac Type Severity Reaction Status Date / Time aspirin Allergy Verified 11/20/15 22:04 Acetaminophen (Tylenol) 650 mg PO Q6H PRN PRN Reason: Pain Or Fever Above 101 Stop: 07/16/18 22:50 Albuterol Sulfate (Albuterol 2.5mg/3ml Neb Ud) 2.5 mg HHN Q2H PRN PRN Reason: Shortness of Breath Stop: 07/17/18 14:42 Dextrose/Sodium Chloride (D5-0.45ns) 1,000 mls @ 75 mls/hr IV .[id number] [facility] Stop: 07/16/18 19:36 Last Infusion: 05/20/18 17:27 Dose: 75 mls/hr Medication Infusion/Titration Document 05/20/18 17:27 DLOZADA (Rec: 05/20/18 17:27 DLOZADA JAMIE-WOW- MS5) Intake Titration Intake 882.5 Cumulative Intake 882.5 Cumulative Intake (Rx) 4575 Container Volume 0 Volume Adjustment/Waste 117.5 Dosing IV Rate 75 Increase/Decrease Infused Cumulative Dose Not Applicable Time Elapsed Time 61h 0m Admin: 05/20/18 17:27 Dose: 75 mls/hr MAR IV Start Time Document 05/20/18 17:27 DLOZADA (Rec: 05/20/18 17:27 DLOZADA JAMIE-WOW- MS5) IV Start Time MAR IV Start Time 17:27 IV Site MAR IV Site Left Antecubital Medication Infusion/Titration Document 05/20/18 17:27 DLOZADA (Rec: 05/20/18 17:27 DLOZADA JAMIE-WOW- MS5) Intake Cumulative Intake (Rx) 4575 Container Volume 1,000 Volume Adjustment/Waste 0 Dosing IV Rate 75 Increase/Decrease Started/Running Cumulative Dose Not Applicable Time Elapsed Time 61h 0m Admin: 05/20/18 05:41 Dose: 75 mls/hr MAR IV Start Time Document 05/20/18 05:41 [email or web address] (Rec: 05/20/18 05:42 [email or web address] [email or web address]) IV Start Time MAR IV Start Time 05:42 IV Site MAR IV Site Left Antecubital Medication Infusion/Titration Document 05/20/18 05:41 [email or web address] (Rec: 05/20/18 05:42 [email or web address] [email or web address]) Intake Cumulative Intake (Rx) 3692.5 Container Volume 1,000 Volume Adjustment/Waste 0 Dosing IV Rate 75 Increase/Decrease Started/Running Cumulative Dose Not Applicable Time Elapsed Time 49h 14m Infusion: 05/20/18 05:41 Dose: 75 mls/hr Medication Infusion/Titration Document 05/20/18 05:41 [email or web address] (Rec: 05/20/18 05:42 [email or web address] [email or web address]) Intake Titration Intake 988.75 Cumulative Intake 988.75 Cumulative Intake (Rx) 3692.5 Container Volume 0 Volume Adjustment/Waste 11.25 Dosing IV Rate 75 Increase/Decrease Infused Cumulative Dose Not Applicable Time Elapsed Time 49h 14m Infusion: 05/19/18 16:30 Dose: 75 mls/hr Medication Infusion/Titration Document 05/19/18 16:30 JCENDANA (Rec: 05/19/18 16:31 JCENDANA JAMIE-WOW -MS3) Intake Titration Intake 805 Cumulative Intake 805 Cumulative Intake (Rx) 2703.75 Container Volume 0 Volume Adjustment/Waste 195 Dosing IV Rate 75 Increase/Decrease Infused Cumulative Dose Not Applicable Time Elapsed Time 36h 3m Admin: 05/19/18 16:30 Dose: 75 mls/hr MAR IV Start Time Document 05/19/18 16:30 JCENDANA (Rec: 05/19/18 16:31 JCENDANA JAMIE-WOW -MS3) IV Start Time MAR IV Start Time 16:31 IV Site MAR IV Site Left Antecubital Medication Infusion/Titration Document 05/19/18 16:30 JCENDANA (Rec: 05/19/18 16:31 JCENDANA JAMIE-WOW -MS3) Intake Cumulative Intake (Rx) 2703.75 Container Volume 1,000 Volume Adjustment/Waste 0 Dosing IV Rate 75 Increase/Decrease Started/Running Cumulative Dose Not Applicable Time Elapsed Time 36h 3m Admin: 05/19/18 05:46 Dose: 75 mls/hr MAR IV Start Time Document 05/19/18 05:46 [email or web address] (Rec: 05/19/18 05:46 [email or web address] JAMIE-WOW -MS5) IV Start Time MAR IV Start Time 05:46 IV Site MAR IV Site Left Antecubital Medication Infusion/Titration Document 05/19/18 05:46 [email or web address] (Rec: 05/19/18 05:46 [email or web address] JAMIE-WOW -MS5) Intake Cumulative Intake (Rx) 1898.75 Container Volume 1,000 Volume Adjustment/Waste 0 Dosing IV Rate 75 Increase/Decrease Started/Running Cumulative Dose Not Applicable Time Elapsed Time 25h 19m Infusion: 05/19/18 05:46 Dose: 75 mls/hr Medication Infusion/Titration Document 05/19/18 05:46 [email or web address] (Rec: 05/19/18 05:46 [email or web address] JAMIE-WOW -MS5) Intake Titration Intake 898.75 Cumulative Intake 898.75 Cumulative Intake (Rx) 1898.75 Container Volume 0 Volume Adjustment/Waste 101.25 Dosing IV Rate 75 Increase/Decrease Infused Cumulative Dose Not Applicable Time Elapsed Time 25h 19m Admin: 05/18/18 17:47 Dose: 75 mls/hr MAR IV Start Time Document 05/18/18 17:47 DDAVIS (Rec: 05/18/18 17:48 DDAVIS [id number] ) IV Start Time [facility] IV Start Time 17:48 IV Site MAR IV Site Left Antecubital Medication Infusion/Titration Document 05/18/18 17:47 DDAVIS (Rec: 05/18/18 17:48 DDAVIS [id number] ) Intake Cumulative Intake (Rx) 1000 Container Volume 1,000 Volume Adjustment/Waste 0 Dosing IV Rate 75 Increase/Decrease Started/Running Cumulative Dose Not Applicable Time Elapsed Time 13h 20m Infusion: 05/18/18 14:20 Dose: 75 mls/hr Medication Infusion/Titration Document 05/18/18 14:20 DDAVIS (Rec: 05/18/18 17:48 SUSAN GARCIA-[email or web address] ) Intake Titration Intake 1,000 Cumulative Intake 1,000 Cumulative Intake (Rx) 1000 Container Volume 0 Volume Adjustment/Waste 0 Dosing IV Rate 75 Increase/Decrease Infused Cumulative Dose Not Applicable Time Elapsed Time 13h 20m Admin: 05/18/18 01:00 Dose: 75 mls/hr MAR IV Start Time Document 05/18/18 01:00 SLOERA (Rec: 05/18/18 06:28 SLOERA WO-[id number]) IV Start Time MAR IV Start Time 01:00 IV Site MAR IV Site Left Antecubital Medication Infusion/Titration Document 05/18/18 01:00 SLOERA (Rec: 05/18/18 06:28 SLOERA [id number]) Intake Container Volume 1,000 Volume Adjustment/Waste 0 Dosing IV Rate 75 Increase/Decrease Started Cumulative Dose Not Applicable Time Elapsed Time 0m Levofloxacin (Levaquin Pb) 500 mg in 100 mls @ 100 mls/hr IV Q24HR [facility] Stop: 07/17/18 12:59 Last Admin: 05/20/18 12:00 Dose: 100 mls/hr [facility] Fluoroquinolone Assessment Document 05/20/18 12:00 DLOZADA (Rec: 05/20/18 12:01 DLOZADA JOSE- MS5) Fluoroquinolone Side Effects Unusual joint or tendon pain? No Muscle Weakness? No Tingling or prickling sensation, pins No and needles? Numbness in the arms or legs? No Confusion? No Hallucinations? No MAR IV Start Time Document 05/20/18 12:00 DLOZADA (Rec: 05/20/18 12:01 DLOZADA JOSE- MS5) IV Start Time [facility] IV Start Time 12:00 IV Site MAR IV Site Left Antecubital Medication Infusion/Titration Document 05/20/18 12:00 DLOZADA (Rec: 05/20/18 12:01 DLOZADA JOSE- MS5) Intake Cumulative Intake (Rx) 200 Container Volume 100 Volume Adjustment/Waste 0 Dosing IV Rate 100 Increase/Decrease Started/Running Cumulative Dose 1000 Time Elapsed Time 2h 0m Infusion: 05/19/18 13:03 Dose: 100 mls/hr Medication Infusion/Titration Document 05/19/18 13:03 DLOZADA (Rec: 05/20/18 12:01 DLOZADA JAMIE-WOW- MS5) Intake Titration Intake 100 Cumulative Intake 100 Cumulative Intake (Rx) 200 Container Volume 0 Volume Adjustment/Waste 0 Dosing IV Rate 100 Increase/Decrease Infused Cumulative Dose 1000 Time Elapsed Time 2h 0m Admin: 05/19/18 12:03 Dose: 100 mls/hr [facility] Fluoroquinolone Assessment Document 05/19/18 12:03 JCENDANA (Rec: 05/19/18 12:03 JCENDANA JAMIE-WOW -MS3) Fluoroquinolone Side Effects Unusual joint or tendon pain? No Muscle Weakness? No Tingling or prickling sensation, pins No and needles? Numbness in the arms or legs? No Confusion? No Hallucinations? No MAR IV Start Time Document 05/19/18 12:03 JCENDANA (Rec: 05/19/18 12:03 JCENDANA JAMIE-WOW -MS3) IV Start Time [facility] IV Start Time 12:03 IV Site MAR IV Site Left Antecubital Medication Infusion/Titration Document 05/19/18 12:03 JCENDANA (Rec: 05/19/18 12:03 JCENDANA JAMIE-WOW -MS3) Intake Cumulative Intake (Rx) 100 Container Volume 100 Volume Adjustment/Waste 0 Dosing IV Rate 100 Increase/Decrease Started/Running Cumulative Dose 500 Time Elapsed Time 1h 0m Infusion: 05/18/18 14:14 Dose: 100 mls/hr Medication Infusion/Titration Document 05/18/18 14:14 JCENDANA (Rec: 05/19/18 12:03 JCENDANA JAMIE-WOW -MS3) Intake Titration Intake 100 Cumulative Intake 100 Cumulative Intake (Rx) 100 Container Volume 0 Volume Adjustment/Waste 0 Dosing IV Rate 100 Increase/Decrease Infused Cumulative Dose 500 Time Elapsed Time 1h 0m Admin: 05/18/18 13:14 Dose: 100 mls/hr [facility] Fluoroquinolone Assessment Document 05/18/18 13:14 ACLAUDIO (Rec: 05/18/18 13:15 ACLAUDIO JAMIE-WOW -MS5) Fluoroquinolone Side Effects Unusual joint or tendon pain? No Muscle Weakness? No Tingling or prickling sensation, pins No and needles? Numbness in the arms or legs? No Confusion? No Hallucinations? No MAR IV Start Time Document 05/18/18 13:14 ACLAUDIO (Rec: 05/18/18 13:15 ACLAUDIO JAMIE-WOW -MS5) IV Start Time [facility] IV Start Time 13:14 IV Site MAR IV Site Left Antecubital Medication Infusion/Titration Document 05/18/18 13:14 ACLAUDIO (Rec: 05/18/18 13:15 ACLAUDIO JAMIE-WOW -MS5) Intake Container Volume 100 Volume Adjustment/Waste 0 Dosing IV Rate 100 Increase/Decrease Started Time Elapsed Time 0m Lactulose (Cephulac) 30 gm PO TID [facility] Stop: 07/19/18 15:29 Last Admin: 05/20/18 15:37 Dose: 30 gm Morphine Sulfate (Morphine) 1 mg IVP Q4H PRN PRN Reason: Pain (Moderate) Stop: 07/17/18 02:38 Last Admin: 05/18/18 05:05 Dose: 1 mg MAR Pain Scale Document 05/18/18 05:05 SLOERA (Rec: 05/18/18 05:05 SLOERA [id number]) Pain Scale Pain Scale 8 Re-Assess: [facility] Pain Scale Document 05/18/18 06:05 SLOERA (Rec: 05/18/18 06:12 SLOERA [id number]) Pain Scale Pain Scale 2 Morphine Sulfate (Morphine) 2 mg IVP Q4H PRN PRN Reason: Pain (Severe) Stop: 07/17/18 02:39 Last Admin: 05/20/18 12:27 Dose: 2 mg MAR Pain Scale Document 05/20/18 12:27 DLOZADA (Rec: 05/20/18 12:27 DLOZADA JAMIE-WOW- MS5) Pain Scale Pain Scale 5 Re-Assess: MAR Pain Scale Document 05/20/18 13:27 DLOZADA (Rec: 05/20/18 14:02 DLOZADA JAMIE-WOW- MS5) Pain Scale Pain Scale 0 Admin: 05/19/18 20:35 Dose: 2 mg MAR Pain Scale Document 05/19/18 20:35 [email or web address] (Rec: 05/19/18 20:35 [email or web address] JAMIE-WOW -MS1) Pain Scale Pain Scale 7 Re-Assess: MAR Pain Scale Document 05/19/18 21:35 [email or web address] (Rec: 05/19/18 21:35 [email or web address] JAMIE-WOW -MS1) Pain Scale Pain Scale 4 Admin: 05/19/18 16:31 Dose: 2 mg MAR Pain Scale Document 05/19/18 16:31 JCENDANA (Rec: 05/19/18 16:31 JCENDANA JAMIE-WOW -MS3) Pain Scale Pain Scale 6 Re-Assess: MAR Pain Scale Document 05/19/18 17:31 JCENDANA (Rec: 05/19/18 17:33 JCENDANA JAMIE-WOW -MS3) Pain Scale Pain Scale 0 Admin: 05/19/18 11:21 Dose: 2 mg MAR Pain Scale Document 05/19/18 11:21 JCENDANA (Rec: 05/19/18 11:21 JCENDANA JAMIE-WOW -MS3) Pain Scale Pain Scale 7 Re-Assess: MAR Pain Scale Document 05/19/18 12:21 JCENDANA (Rec: 05/19/18 12:21 JCENDANA JAMIE-WOW -MS3) Pain Scale Pain Scale 4 Admin: 05/18/18 19:39 Dose: 2 mg MAR Pain Scale Document 05/18/18 19:39 [email or web address] (Rec: 05/18/18 19:40 [email or web address] JAMIE-WOW -MS5) Pain Scale Pain Scale 6 Re-Assess: MAR Pain Scale Document 05/18/18 20:39 [email or web address] (Rec: 05/18/18 20:43 [email or web address] JAMIE-MS6 ) Pain Scale Pain Scale 5 Admin: 05/18/18 11:14 Dose: 2 mg MAR Pain Scale Document 05/18/18 11:14 MIROSLAVA (Rec: 05/18/18 11:14 MIROSLAVA WOW-ED3) Pain Scale Pain Scale 7 Re-Assess: MAR Pain Scale Document 05/18/18 12:14 KARINEKINS (Rec: 05/18/18 13:56 MIROSLAVA JAMIE-WOW -MS1) Pain Scale Pain Scale 0 Ondansetron HCl (Zofran) 4 mg IVP Q6H PRN PRN Reason: Nausea / Vomiting Stop: 07/16/18 22:50 Last Admin: 05/18/18 11:20 Dose: 4 mg Discontinued Medications Bisacodyl (Dulcolax 10 Mg Supp) 10 mg RC X1 ONE Stop: 02/19/19 21:01 Last Admin: 05/19/18 21:35 Dose: 10 mg Lactated Ringer's (Lactated Ringer) 1,000 mls @ 999 mls/hr IV .Q1H1M ONE Stop: 05/17/18 17:49 Last Admin: 05/17/18 17:06 Dose: 999 mls/hr MAR IV Start Time Document 05/17/18 17:06 KSORIA (Rec: 05/17/18 17:06 KSORIA [id number] ) IV Start Time MAR IV Start Time 17:06 IV Site MAR IV Site Left Antecubital Medication Infusion/Titration Document 05/17/18 17:06 KSORIA (Rec: 05/17/18 17:06 KSORIA [id number] ) Intake Container Volume 1,000 Volume Adjustment/Waste 0 Dosing IV Rate 999 Increase/Decrease Started Cumulative Dose Not Applicable Time Elapsed Time 0m Re-Assess: MAR IV End Time Document 05/17/18 19:28 CAGRA (Rec: 05/17/18 19:29 CAGRA [id number]) IV End Time MAR IV End Time 19:20 IV Infused Total Amount Intake, IV Amount 1,000 Piperacillin Sod/Tazobactam (Sod 3.375 gm/ Sodium Chloride) 50 mls @ 100 mls/ hr IV X1 ONE Stop: 05/17/18 18:12 Last Admin: 05/17/18 17:57 Dose: 100 mls/hr MAR IV Start Time Document 05/17/18 17:57 KSORIA (Rec: 05/17/18 17:57 KSORIA [id number] ) IV Start Time MAR IV Start Time 17:57 IV Site MAR IV Site Left Antecubital Medication Infusion/Titration Document 05/17/18 17:57 KSORIA (Rec: 05/17/18 17:57 KSORIA [id number] ) Intake Container Volume 50 Volume Adjustment/Waste 0 Dosing IV Rate 100 Increase/Decrease Started Time Elapsed Time 0m Re-Assess: MAR IV End Time Document 05/17/18 19:29 CAGRA (Rec: 05/17/18 19:29 CAGRA [id number]) IV End Time MAR IV End Time 19:25 IV Infused Total Amount Intake, IV Amount 50 Dextrose/Lactated Ringer's (D5lr) 1,000 mls @ 999 mls/hr IV .Q1H1M ONE Stop: 05/17/18 20:32 Last Admin: 05/17/18 19:35 Dose: 999 mls/hr MAR IV Start Time Document 05/17/18 19:35 AGAPITORIPRASANNA (Rec: 05/17/18 19:35 [facility] IV Start Time MAR IV Start Time 19:35 IV Site MAR IV Site Left Antecubital Medication Infusion/Titration Document 05/17/18 19:35 AGAPITORIPRASANNA (Rec: 05/17/18 19:35 [facility] Intake Container Volume 1,000 Volume Adjustment/Waste 0 Dosing IV Rate 999 Increase/Decrease Started Cumulative Dose Not Applicable Time Elapsed Time 0m Re-Assess: MAR IV End Time Document 05/17/18 20:19 PRERNA (Rec: 05/17/18 20:19 PRERNA [id number]) IV End Time MAR IV End Time 20:08 IV Infused Total Amount Intake, IV Amount 800 Dextrose/Lactated Ringer's (D5lr) 1,000 mls @ 125 mls/hr IV .Q8H ONE Stop: 05/18/18 03:32 Last Admin: 05/17/18 23:13 Dose: Ceftriaxone Sodium 1 gm/ (Sodium Chloride) 50 mls @ 100 mls/hr IV Q24HR [facility] Stop: 07/16/18 20:59 Last Admin: 05/17/18 23:31 Dose: Cefazolin Sodium 1 gm/ Sodium (Chloride) 50 mls @ 100 mls/hr IV Q8H [facility] Stop: 05/18/18 14:29 Last Admin: 05/18/18 14:21 Dose: 100 mls/hr MAR IV Start Time Document 05/18/18 14:21 MIROSLAVA (Rec: 05/18/18 14:21 [id number] IV Start Time MAR IV Start Time 14:21 IV Site MAR IV Site Left Antecubital Medication Infusion/Titration Document 05/18/18 14:21 MIROSLAVA (Rec: 05/18/18 14:21 MIROSLAVA WOW-ED3) Intake Cumulative Intake (Rx) 50 Container Volume 50 Volume Adjustment/Waste 0 Dosing IV Rate 100 Increase/Decrease Started/Running Cumulative Dose 0 Time Elapsed Time 36m Infusion: 05/18/18 07:04 Dose: 0 mls/hr Medication Infusion/Titration Document 05/18/18 07:04 SLOERA (Rec: 05/18/18 07:05 SLOERA JAMIE-MS6) Intake Titration Intake 50 Cumulative Intake 50 Cumulative Intake (Rx) 50 Container Volume 0 Volume Adjustment/Waste 0 Dosing IV Rate 0 Increase/Decrease Infused Cumulative Dose 0 Time Elapsed Time 36m Admin: 05/18/18 06:28 Dose: 100 mls/hr MAR IV Start Time Document 05/18/18 06:28 SLOERA (Rec: 05/18/18 06:28 SLOBRAXTON WOW-[id number]) IV Start Time MAR IV Start Time 06:00 IV Site MAR IV Site Left Antecubital Medication Infusion/Titration Document 05/18/18 06:28 SLOERA (Rec: 05/18/18 06:28 SLOBRAXTON WOW-[id number]) Intake Container Volume 50 Volume Adjustment/Waste 0 Dosing IV Rate 100 Increase/Decrease Started Time Elapsed Time 0m Metronidazole (Flagyl) 500 mg in 100 mls @ 100 mls/hr IV Q8HR ISE[facility] Stop: 05/18/18 13:59 Metronidazole (Flagyl) 500 mg in 100 mls @ 100 mls/hr IV Q8H [facility] Stop: 05/18/18 12:59 Last Admin: 05/18/18 11:05 Dose: 100 mls/hr MAR IV Start Time Document 05/18/18 11:05 MIROSLAVA (Rec: 05/18/18 11:06 MIROSLAVA WOW-ED3) IV Start Time MAR IV Start Time 11:06 IV Site MAR IV Site Left Antecubital Medication Infusion/Titration Document 05/18/18 11:05 MIROSLAVA (Rec: 05/18/18 11:06 MIROSLAVA WOW-ED3) Intake Cumulative Intake (Rx) 100 Container Volume 100 Volume Adjustment/Waste 0 Dosing IV Rate 100 Increase/Decrease Started/Running Cumulative Dose 500 Time Elapsed Time 1h 9m Infusion: 05/18/18 06:00 Dose: 0 mls/hr Medication Infusion/Titration Document 05/18/18 06:00 SLOERA (Rec: 05/18/18 06:00 SLOBRAXTON [id number]) Intake Titration Intake 100 Cumulative Intake 100 Cumulative Intake (Rx) 100 Container Volume 0 Volume Adjustment/Waste 0 Dosing IV Rate 0 Increase/Decrease Infused Cumulative Dose 500 Time Elapsed Time 1h 9m Admin: 05/18/18 04:51 Dose: 100 mls/hr MAR IV Start Time Document 05/18/18 04:51 SLOERA (Rec: 05/18/18 04:51 SLOERA [id number]) IV Start Time MAR IV Start Time 04:00 IV Site MAR IV Site Left Antecubital Medication Infusion/Titration Document 05/18/18 04:51 SLOERA (Rec: 05/18/18 04:51 SLOERA WOW-[id number]) Intake Container Volume 100 Volume Adjustment/Waste 0 Dosing IV Rate 100 Increase/Decrease Started Time Elapsed Time 0m Morphine Sulfate (Morphine) 2 mg IV NOW STA Stop: 05/17/18 18:09 Last Admin: 05/17/18 18:08 Dose: 2 mg MAR IV Start Time Document 05/17/18 18:08 KSORIA (Rec: 05/17/18 18:08 KSORIA [id number] ) IV Start Time MAR IV Start Time 18:08 IV Site MAR IV Site Left Antecubital MAR Pain Scale Document 05/17/18 18:08 KSORIA (Rec: 05/17/18 18:08 KSORIA [id number] ) Pain Scale Pain Scale 6 Re-Assess: [facility] Pain Scale Document 05/17/18 19:08 EARRIETA (Rec: 05/17/18 19:39 EARRIETA [id number]) Pain Scale Pain Scale 6 Morphine Sulfate (Morphine) 2 mg IV NOW STA Stop: 05/17/18 19:39 Last Admin: 05/17/18 23:12 Dose: MAR Pain Scale Document 05/17/18 23:12 SLOERA (Rec: 05/17/18 23:12 SLOERA [id number]) Pain Scale Pain Scale 10 Morphine Sulfate (Morphine) 1 - 2 mg IVP Q4H PRN PRN Reason: Pain (Moderate) Stop: 07/16/18 19:44 Ondansetron HCl (Zofran) 4 mg IV NOW STA Stop: 05/17/18 18:14 Last Admin: 05/17/18 18:50 Dose: 4 mg MAR IV Start Time Document 05/17/18 18:50 TMINNIHAN (Rec: 05/17/18 18:51 TMINNIHAN [id number]) IV Start Time MAR IV Start Time 18:50 IV Site MAR IV Site Left Antecubital Pneumococcal Polyvalent Vaccine (Pneumovax) 0.5 ml IM .ONCE ONE Stop: 05/18/18 10:01 Last Admin: 05/18/18 17:46 Dose: Infectious Disease Objective - Results Result Diagrams: 05/20/18 05:05 05/20/18 05:05 Recent Labs: Laboratory Last Values WBC 11.9 Th/cmm (4.8-10.8) H 05/20/18 05:05 RBC 4.60 Mil/cmm (3.80-5.10) 05/20/18 05:05 Hgb 12.8 gm/dL (12-16) 05/20/18 05:05 Hct 39.3 % (41.0-60) L 05/20/18 05:05 MCV 85.3 fl (81-100) 05/20/18 05:05 MCH 27.7 pg (27.0-31.0) 05/20/18 05:05 MCHC Differential 32.5 pg (28.0-36.0) 05/20/18 05:05 RDW 11.8 % (11.5-20.0) 05/20/18 05:05 Plt Count 328 Th/cmm (150-400) 05/20/18 05:05 MPV 8.2 fl 05/20/18 05:05 Neutrophils % 49.9 % (40.0-80.0) 05/20/18 05:05 Lymphocytes % 36.2 % (20.0-50.0) 05/20/18 05:05 Monocytes % 6.7 % (2.0-10.0) 05/20/18 05:05 Eosinophils % 5.8 % (0.0-5.0) H 05/20/18 05:05 Basophils % 1.4 % (0.0-2.0) 05/20/18 05:05 PT 9.3 SECONDS (9.5-11.5) L 05/17/18 17:00 INR 0.88 (0.5-1.4) 05/17/18 17:00 PTT (Actin FS) 24.7 SECONDS (26.0-38.0) L 05/17/18 17:00 Sodium 138 mEq/L (136-145) 05/20/18 05:05 Potassium 3.8 mEq/L (3.5-5.1) 05/20/18 05:05 Chloride 103 mEq/L (98-107) 05/20/18 05:05 Carbon Dioxide 26.4 mEq/L (21.0-31.0) 05/20/18 05:05 Anion Gap 12.4 (7.0-16.0) 05/20/18 05:05 BUN 10 mg/dL (7-25) 05/20/18 05:05 Creatinine 0.4 mg/dL (0.6-1.2) L 05/20/18 05:05 Est GFR ( Amer) > 60.0 ml/min (>90) 05/20/18 05:05 Est GFR (Non-Af Amer) > 60.0 ml/min 05/20/18 05:05 BUN/Creatinine Ratio 25.0 05/20/18 05:05 Glucose 125 mg/dL (70-105) H 05/20/18 05:05 POC Glucose 170 MG/DL (70 - 105) H 05/17/18 21:41 Whole Bld Lactic Acid 0.96 mmol/L (0.60-1.99) 05/17/18 17:00 Calcium 8.8 mg/dL (8.6-10.3) 05/20/18 05:05 Phosphorus 3.6 mg/dL (2.5-5.0) 05/17/18 17:00 Magnesium 2.0 mg/dL (1.9-2.7) 05/17/18 17:00 Total Bilirubin 0.8 mg/dL (0.3-1.0) 05/18/18 04:40 AST 12 U/L (13-39) L 05/18/18 04:40 ALT 10 U/L (7-52) 05/18/18 04:40 Alkaline Phosphatase 44 U/L (34-104) 05/18/18 04:40 Total Protein 5.8 gm/dL (6.0-8.3) L 05/18/18 04:40 Albumin 3.5 gm/dL (3.7-5.3) L 05/18/18 04:40 Globulin 2.3 gm/dL 05/18/18 04:40 Albumin/Globulin Ratio 1.5 (1.0-1.8) 05/18/18 04:40 Amylase 31 U/L (29-103) 05/17/18 17:00 Lipase 7 U/L (11-82) L 05/17/18 17:00 Urine Source CLEAN C 05/17/18 17:02 Urine Color STRAW 05/17/18 17:02 Urine Clarity CLEAR (CLEAR) 05/17/18 17:02 Urine pH 7.0 (4.6 - 8.0) 05/17/18 17:02 Ur Specific [place] 1.020 (1.005-1.030) 05/17/18 17:02 Urine Protein TRACE mg/dL (NEGATIVE) 05/17/18 17:02 Urine Glucose (UA) NEGATIVE mg/dL (NEGATIVE) 05/17/18 17:02 Urine Ketones NEGATIVE mg/dL (NEGATIVE) 05/17/18 17:02 Urine Blood NEGATIVE (NEGATIVE) 05/17/18 17:02 Urine Nitrate NEGATIVE (NEGATIVE) 05/17/18 17:02 Urine Bilirubin NEGATIVE (NEGATIVE) 05/17/18 17:02 Urine Urobilinogen 1.0 E.U./dL (0.2 - 1.0) 05/17/18 17:02 Ur Leukocyte Esterase NEGATIVE (NEGATIVE) 05/17/18 17:02 Urine RBC NONE SEEN /hpf (0-5) 05/17/18 17:02 Urine WBC NONE SEEN /hpf (0-5) 05/17/18 17:02 Ur Epithelial Cells RARE /lpf (FEW) 05/17/18 17:02 Urine Bacteria NONE SEEN /hpf (NONE SEEN) 05/17/18 17:02 Urine Opiates Screen NEGATIVE (NEGATIVE) 05/17/18 17:02 Urine Methadone Screen NEGATIVE (NEGATIVE) 05/17/18 17:02 Ur Barbiturates Screen NEGATIVE (NEGATIVE) 05/17/18 17:02 Ur Tricyclics Screen NEGATIVE (NEGATIVE) 05/17/18 17:02 Ur Phencyclidine Scrn NEGATIVE (NEGATIVE) 05/17/18 17:02 Amphetamines Screen NEGATIVE (NEGATIVE) 05/17/18 17:02 U Methamphetamines Scrn NEGATIVE (NEGATIVE) 05/17/18 17:02 U Benzodiazepines Scrn NEGATIVE (NEGATIVE) 05/17/18 17:02 U Cocaine Metab Screen NEGATIVE (NEGATIVE) 05/17/18 17:02 U Cannabinoids Screen NEGATIVE (NEGATIVE) 05/17/18 17:02 - Physical Exam Vitals and I&O: Vital Signs Temp 98.6 F 05/20/18 15:35 Pulse 68 05/20/18 15:35 Resp 18 05/20/18 15:35 BP 146/78 05/20/18 15:35 Pulse Ox 96 05/20/18 15:35 Intake & Output 05/19/18 05/20/18 05/20/18 18:59 06:59 18:59 Intake Total 2105 988.75 1682.5 Output Total 2150 40 Balance -45 988.75 1642.5 Weight (lbs) 70.76 kg 70.76 kg Intake: Intake, IV Amount 905 988.75 882.5 D5-0.45NS 1,000 ml @ 75 805 988.75 882.5 mls/hr IV .[id number] [facility] Rx #:[id number] Levofloxacin 500mg/100mL 100 500 mg In 100 ml @ 100 mls/hr IV Q24HR [facility] Rx#: [id number] Oral 1200 800 Output: Drainage 50 40 Right Lower Abdomen 50 40 Urine 2100 Other: # Voids 4 # Bowel Movements 0 0 Weight Source Bedscale Bedscale Active Medications: Current Medications Acetaminophen (Tylenol) 650 mg PO Q6H PRN PRN Reason: Pain Or Fever Above 101 Stop: 07/16/18 22:50 Albuterol Sulfate (Albuterol 2.5mg/3ml Neb Ud) 2.5 mg HHN Q2H PRN PRN Reason: Shortness of Breath Stop: 07/17/18 14:42 Dextrose/Sodium Chloride (D5-0.45ns) 1,000 mls @ 75 mls/hr IV .[id number] [facility] Stop: 07/16/18 19:36 Last Admin: 05/20/18 17:27 Dose: 75 mls/hr Levofloxacin (Levaquin Pb) 500 mg in 100 mls @ 100 mls/hr IV Q24HR [facility] Stop: 07/17/18 12:59 Last Admin: 05/20/18 12:00 Dose: 100 mls/hr Lactulose (Cephulac) 30 gm PO TID [facility] Stop: 07/19/18 15:29 Last Admin: 05/20/18 15:37 Dose: 30 gm Morphine Sulfate (Morphine) 1 mg IVP Q4H PRN PRN Reason: Pain (Moderate) Stop: 07/17/18 02:38 Last Admin: 05/18/18 05:05 Dose: 1 mg Morphine Sulfate (Morphine) 2 mg IVP Q4H PRN PRN Reason: Pain (Severe) Stop: 07/17/18 02:39 Last Admin: 05/20/18 12:27 Dose: 2 mg Ondansetron HCl (Zofran) 4 mg IVP Q6H PRN PRN Reason: Nausea / Vomiting Stop: 07/16/18 22:50 Last Admin: 05/18/18 11:20 Dose: 4 mg - Procedures Procedures: Procedures Procedure Code Date BILAT TUBAL DIVISION NEC 66.32 02/08/02 [employer] [place] [employer] 48005 02/08/02 DX PROC FETUS/AMNION NEC 75.35 02/08/02 MONITORING NOS 75.34 02/08/02 MANUAL ASSIST DELIV NEC 73.59 02/08/02 OBSTETRICAL CARE 86800 02/08/02 OBSTETRICAL CARE 69156 12/20/00 RESECTION OF APPENDIX, OPEN APPROACH [id number] 05/17/18 Infectious Disease Assmt/Plan - Problem List Patient Problems: All Active Problems RIGHT FLANK PAIN (Acute) Nutritional Asmnt/Malnutr-PDOC - Dietary Evaluation Malnutrition Findings (Please click <Entered> for more info): Nutritional Asmnt/Malnutrition Start: 05/18/18 14: 26 Text: Status: Complete Freq: Protocol: Document 05/18/18 14:26 [email or web address] (Rec: 05/18/18 14:36 [id number] [id number]) Nutritional Asmnt/Malnutrition Patient General Information Nutritional Screening High Risk Consult Diagnosis acute appendicitis Pertinent Medical Hx/Surgical Hx gallstones, tubal ligation Subjective Information Consult received for diabetic. pt seen resting in bed at time of visit, s/p appendectomy day 1. Family at bedside, stated pt cook and eat at home, not following any diet restriction. Briefly explained healthy eating and balanced meal to family, and family verbalized understanding. Current Diet Order/ Nutrition Support clear liquid with Ensure clear TID Pertinent Medications D5-0.45ns, levaquin Pertinent Labs 05/18 Cr 0.4, Glucose 136 05/17 Cr 0.4, gluocse 116 Nutritional Hx/Data Height 1.52 m Height (Calculated Centimeters) 152.4 Current Weight (lbs) 69.4 kg Weight (Calculated Kilograms) 69.4 Weight (Calculated Grams) 42058.6 [place] Body Weight 100 Body Mass Index (BMI) 29.9 Weight Status Overweight GI Symptoms GI Symptoms None Last BM none Difficult in: None Skin Integrity/Comment: intact Estimated Nutritional Goals BEE in Kcals: Using Current wt Calories/Kcals/Kg 23-27 Kcals Calculated 9221-4199 Protein: Using Current wt Protein g/k-1.2 Protein Calculated 70-84 Fluid: ml 1610-1890ml (1ml/kcal) Nutritional Problem 1. Problem Problem altered nutrition related labs Etiology hyperglycemia Signs/Symptoms: glucose 116-136 Malnutrition Alert Is there a minimum of two criteria No selected? Query Text:Check all the applicable criteria. A minimum of two criteria are recommended for diagnosis of either severe or non-severe malnutrition. Malnutrition Related to Morbid Obesity Malnutrition related to morbid obesity No Intervention/Recommendation Comments 1. Continue with clear liquid diet with ENsure Clear TID as ordered. Advance diet as tolerated. 2. Consider checking A1c level to assess the need for diabetic diet. 3. Monitor PO intake, wt, labs and skin integrity 4. F/U as high risk in 2-3 days Expected Outcomes/Goals Expected Outcomes/Goals 1. PO intake to meet at least 75% of nutritional needs. 2. Wt stability, skin to remain intact, labs to approach WNL.
[2018-05-21 06:40] LABS: % BASOPHILS 0.2 % (0.0-2.0); % EOSINOPHILS 5.6 % (0.0-5.0); % LYMPHOCYTES 33.5 % (20.0-50.0); % MONOCYTES 6.9 % (2.0-10.0); % NEUTROPHILS 53.8 % (40.0-80.0); EOSINOPHILE ABSOLUTE 0.6 Th/cmm (0.1-0.4); HEMATOCRIT 37.3 % (41.0-60); HEMOGLOBIN 12.2 gm/dL (12-16); LYMPHOCYTE ABSOLUTE 3.5 Th/cmm (1.5-3.0); MEAN CELL VOLUME 85.2 fl (81-100); MEAN CORPUSCULAR HGB CONC 32.8 pg (28.0-36.0); MEAN PLATELET VOLUME 8.7 fl; MONOCYTE ABSOLUTE 0.7 Th/cmm (0.3-1.0); NEUTROPHILE ABSOLUTE 5.5 Th/cmm (1.8-8.0); PLATELET COUNT 341 Th/cmm (150-400); RED BLOOD COUNT 4.37 Mil/cmm (3.80-5.10); RED CELL DISTRIBUTION WIDTH 11.6 % (11.5-20.0); WHITE BLOOD COUNT 10.3 Th/cmm (4.8-10.8)
[2018-05-21 08:38] LABS: ANION GAP 12.4 (7.0-16.0); BUN - UREA NITROGEN 9 mg/dL (7-25); CALCIUM SERUM 8.8 mg/dL (8.6-10.3); CARBON DIOXIDE 25.4 mEq/L (21.0-31.0); CHLORIDE 105 mEq/L (98-107); CREATININE - SERUM 0.3 mg/dL (0.6-1.2); GFR AFRICAN-AMERICAN > 60.0 ml/min (>90); GFR NON AFRICAN-AMERICAN > 60.0 ml/min; GLUCOSE 120 mg/dL (70-105); POTASSIUM SERUM 3.8 mEq/L (3.5-5.1); SODIUM SERUM 139 mEq/L (136-145)
[2018-05-21] MEDS: Lactulose 10 Gm/15 mL 30mL UDC PO SCH (09:34)
== END 2018-05-21 09:45 | disposition home or self-care (01) | DRG 710 ==
LOC: ER 16:33 → MSI 19:30
PROVIDERS: ADMIT Internal Medicine; ATTEND Internal Medicine
PROC: 0DTJ0ZZ Resection of Appendix, Open Approach (ICD-10-PCS; principal; 2018-05-17)
PROC: 0D9J00Z Drainage of Appendix with Drainage Device, Open Approach (ICD-10-PCS; 2018-05-17)
DX: A41.9 Sepsis, unspecified organism (principal); K35.33 Acute appendicitis with perforation, localized peritonitis, and gangrene, with abscess; K80.20 Calculus of gallbladder without cholecystitis without obstruction; R63.0 Anorexia; I10 Essential (primary) hypertension; K52.9 Noninfective gastroenteritis and colitis, unspecified; Z88.6 Allergy status to analgesic agent; Z98.51 Tubal ligation status; Z68.31 Body mass index [BMI] 31.0-31.9, adult; Z23 Encounter for immunization
CPT/HCPCS: 36415-UA; 71045-TC; 80048-TC; 80053-TC; 80307; 81001-TC; 82150-TC; 82948-90; 83605; 83690-TC; 83735-TC; 84100-TC; 85025-TC; 85610-TC; 87070-90; 87075-90; 87205-90; 90799; 93005; 96372; 96375; 97530; J0690; J0696; J1956; J2270; J2405; J2543; J2704; J2930; J3010; J7030; J7042; J7121; V2790; X3904; X6024; X6258; Z7506; Z7610